=== PATIENT | female | born 1970 | race Caucasian/White ===

== ENCOUNTER 2017-05-17 01:03 | Inpatient (IN) | payer MEDICAID, OTHER ==
[~2017-05-17] VITALS: Ht 167.6 cm; Wt 86.7 kg
[2017-05-17] VITALS (8 sets, daily range): BP systolic 124–187; BP diastolic 75–112; PULSE 72–100; RESP 14–18; TEMP 96.5–98.4; O2SAT 94–98
[2017-05-17] MEDS ORDERED: PANTOPRAZOLE SODIUM 40 MG VIAL IVP ONE (01:30)
[2017-05-17] MEDS ORDERED: SODIUM CHLORIDE 0.9% FLUSH 10 ML FLUSH IV FLUSH PRN ×2 (01:30→03:30)
--- NOTE | 2017-05-17 01:58 | PD ---
HPI Chief Complaint: Abdominal Pain Time Seen by Provider: :17 Travel History International Travel<30 days: No Contact w/Intl Traveler<30days: No Traveled to known affect area: No History of Present Illness HPI Patient is a 44-year-old female who presents emergency department with abdominal pain. For the last 2 weeks intermittently she has had pain in the back, describes this as in between the shoulder blades/flank. Pain occasionally will radiate into the abdomen and periumbilical and epigastric region. Patient has noticed that the pain in the abdomen seemed to be worse after eating a hamburger and pizza, approximately 60 minutes after ingestion. She denies any history of hepatobiliary pathology, but did note that gallbladder disease runs in her family. Patient denies any nausea, vomiting, fevers or chills. No urinary symptoms. PFSH Past Medical History Medical History: Denies Significant Hx Influenza Vaccination: No ?: Not LMP: MAY 2017 : 2 Para: 2 Past Surgical History Surgical History: No Previous Surgery Social History Alcohol Use: Yes (SOCIAL) Tobacco Use: No Substance Use: No Allergies-Medications (Allergen,Severity, Reaction): Coded Allergies: Penicillin (Verified Allergy, Severe, Anaphylaxis, 05/17/17) Sulfa (Verified Allergy, Severe, Hives, 05/17/17) Reported Meds & Prescriptions Reported Meds & Active Scripts Active Ciprofloxacin (Ciprofloxacin HCl) 750 Mg Tab 750 Mg PO BID 7 Days Review of Systems Except as stated in HPI: all other systems reviewed are Neg Physical Exam Narrative GENERAL: Well-appearing female in no acute distress SKIN: Focused skin assessment warm/dry. HEAD: Normocephalic. EYES: No scleral icterus. No injection or drainage. ENT: Mucous membranes pink and moist. NECK: Supple CARDIOVASCULAR: Regular rate and rhythm. RESPIRATORY: No accessory muscle use. GASTROINTESTINAL: Abdomen soft, right upper quadrant and epigastric tenderness palpation without rebound or guarding MUSCULOSKELETAL: No obvious deformities. No edema. NEUROLOGICAL: Awake and alert. Motor grossly within normal limits. Normal speech. PSYCHIATRIC: Appropriate mood and affect; insight and judgment normal. Data Data Last Documented VS Vital Signs Date Time Temp Pulse Resp B/P Pulse Ox O2 Delivery O2 Flow Rate FiO2 05/17/17 01:06 97.8 100 14 187/112 96 Room Air Orders Complete Blood Count With Diff (05/17/17 01:23) Comprehensive Metabolic Panel (05/17/17 01:23) Lipase (05/17/17 01:23) Urinalysis - C+S If Indicated (05/17/17 01:23) Us Abdomen Gallbladder (05/17/17 ) Iv Access Insert/Monitor (05/17/17 01:23) Ecg Monitoring (05/17/17 01:23) Oximetry (05/17/17 01:23) Pantoprazole Inj (Protonix Inj) (05/17/17 01:30) Sodium Chloride 0.9% Flush (Ns Flush) (05/17/17 01:30) Ed Urine Pregnancytest Poc (05/17/17 01:23) Urine Culture (05/17/17 01:51) Ciprofloxacin (Cipro) (05/17/17 02:30) Potassium Chloride (Kcl) (05/17/17 02:45) Consult Gastroenterology (05/17/17 ) Mri Mrcp W/O Contrast (05/17/17 ) Morphine Inj (Morphine Inj) (05/17/17 03:15) NPO (05/17/17 03:04) Labs Laboratory Tests Test 05/17/17 05/17/17 01:35 01:51 White Blood Count 9.4 TH/MM3 Red Blood Count 4.98 MIL/MM3 Hemoglobin 14.7 GM/DL Hematocrit 42.8 % Mean Corpuscular Volume 85.9 FL Mean Corpuscular Hemoglobin 29.5 PG Mean Corpuscular Hemoglobin 34.3 % Concent Red Cell Distribution Width 12.7 % Platelet Count 167 TH/MM3 Mean Platelet Volume 9.6 FL Neutrophils (%) (Auto) 81.8 % Lymphocytes (%) (Auto) 9.1 % Monocytes (%) (Auto) 7.3 % Eosinophils (%) (Auto) 1.5 % Basophils (%) (Auto) 0.3 % Neutrophils # (Auto) 7.7 TH/MM3 Lymphocytes # (Auto) 0.9 TH/MM3 Monocytes # (Auto) 0.7 TH/MM3 Eosinophils # (Auto) 0.1 TH/MM3 Basophils # (Auto) 0.0 TH/MM3 CBC Comment DIFF FINAL Differential Comment Sodium Level 138 MEQ/L Potassium Level 3.0 MEQ/L Chloride Level 101 MEQ/L Carbon Dioxide Level 27.6 MEQ/L Anion Gap 9 MEQ/L Blood Urea Nitrogen 6 MG/DL Creatinine 0.91 MG/DL Random Glucose 125 MG/DL Calcium Level 8.7 MG/DL Total Bilirubin 8.0 MG/DL Aspartate Amino Transf 328 U/L (AST/SGOT) Alanine Aminotransferase 313 U/L (ALT/SGPT) Alkaline Phosphatase 196 U/L Total Protein 7.2 GM/DL Albumin 3.5 GM/DL Lipase 94428 U/L Urine Color DARK-BROWN Urine Turbidity HAZY Urine pH 5.0 Urine Specific [place] 1.018 Urine Protein TRACE mg/dL Urine Glucose (UA) NEG mg/dL Urine Ketones 10 mg/dL Urine Occult Blood TRACE Urine Nitrite POS Urine Bilirubin LARGE Urine Urobilinogen 2.0 MG/DL Urine Leukocyte Esterase MOD Urine RBC 2 /hpf Urine WBC 6 /hpf Urine Squamous Epithelial 2 /hpf Cells Urine Bacteria MANY /hpf Urine Mucus FEW /lpf Microscopic Urinalysis Comment CULTURE INDICATED MDM Medical Decision Making Medical Screen Exam Complete: Yes Emergency Medical Condition: Yes Medical Record Reviewed: Yes Differential Diagnosis 46-year-old female with bilateral flank pain radiating to the epigastric and periumbilical region. Worse after fatty food intake. Differential includes pyelonephritis, ureterolithiasis, musculoskeletal pain, gastritis, pancreatitis , hepatobiliary pathology. Narrative Course Patient placed on monitor, IV established and blood obtained. Given IV PPI. CBC, CMP, lipase, urinalysis and urine test notable for positive nitrites with leukocyte esterase, white cells and bacteria. Patient was given dose of Cipro. Lipase 24, 284. Total bilirubin 8.0, AST 328, ALT 313, alkaline phosphatase 196. Consistent with likely gallstone pancreatitis. Potassium 3.0, replaced with 60 mEq orally. Ultrasound the gallbladder showed cholelithiasis with mild gallbladder wall thickening. Does have dilated common bile duct. Concern again for gallstone pancreatitis. Will obtain MRCP, patient given dose of Cipro Flagyl and will be admitted with GI and surgery consultations for possible ERCP and/or cholecystectomy. Diagnosis Primary Impression: Gallstone pancreatitis Additional Impressions: Cholecystitis UTI (urinary tract infection) Qualified Code: N30.00 - Acute cystitis without hematuria Hypokalemia Admitting Information Admitting Physician Requests: Admit Scripts Ciprofloxacin 750 Mg [id number] Mg PO BID 7 Days Ref 0 Prov:Noemí Medeiros MD 05/17/17 Noemí Medeiros MD May 17, 2017 01:58
[2017-05-17 02:05] LABS: AUTOMATED NEUTROPHIL # 7.7 TH/MM3 (1.8-7.7); BASOPHIL % 0.3 % (0.0-2.0); EOSINOPHIL # 0.1 TH/MM3 (0-0.4); EOSINOPHIL % 1.5 % (0.0-4.0); HEMATOCRIT 42.8 % (35.0-46.0); HEMO FLAGS DIFF FINAL; LYMPH % 9.1 % (9.0-44.0); LYMPHOCYTE # 0.9 TH/MM3 (1.0-4.8); MEAN CELL VOLUME 85.9 FL (80.0-100.0); MEAN CORPUSCULAR HEMOGLOBIN 29.5 PG (27.0-34.0); MEAN CORPUSCULAR HGB CONC 34.3 % (32.0-36.0); MONO % 7.3 % (0.0-8.0); NEUT % 81.8 % (16.0-70.0); PLATELET COUNT 167 TH/MM3 (150-450); RED BLOOD COUNT 4.98 MIL/MM3 (4.00-5.30); RED CELL DISTRIBUTION WIDTH 12.7 % (11.6-17.2); WHITE BLOOD COUNT 9.4 TH/MM3 (4.0-11.0)
[2017-05-17 02:20] LABS: BACTERIA, URINE MANY /hpf; BLOOD, URINE TRACE (NEG); COMMENT (UR) CULTURE INDICATED; CULTURE IF INDICATED CULTURE INDICATED; GLUCOSE,URINE NEG (NEG); KETONE, URINE 10 mg/dL (NEG); MUCUS URINE FEW /lpf (OCC); SQUAMOUS EPITHELIAL CELL URINE 2 /hpf (0-5)
[2017-05-17 02:21] LABS: NITRITE,URINE POS (NEG); URINE COLOR DARK-BROWN (YELLW/STRAW)
[2017-05-17] MEDS ORDERED: CIPR750T2 PO (02:27)
[2017-05-17 02:28] LABS: ALT (GPT) 313 U/L (10-53); ANION GAP 9 MEQ/L (5-15); AST (GOT) 328 U/L (15-37); BICARBONATE 27.6 MEQ/L (21.0-32.0); BLOOD UREA NITROGEN 6 MG/DL (7-18); CHLORIDE 101 MEQ/L (98-107); SODIUM (NA) 138 MEQ/L (136-145)
[2017-05-17 02:30] LABS: ALKALINE PHOSPHATASE 196 U/L (45-117)
[2017-05-17] MEDS ORDERED: CIPROFLOXACIN 750 MG TAB PO ONE (02:30)
[2017-05-17] MEDS ORDERED: POTASSIUM CHLORIDE 20 MEQ CONTROLLED RELEASE TAB PO ONE (02:45)
--- NOTE | 2017-05-17 02:55 | RADRPT ---
EXAM DATE/TIME: 05/17/2017 02:15 [facility] COMPARISON: No previous studies available for comparison. INDICATIONS : Righy upper quadrant pain. MEDICAL HISTORY : . Right upper quadrant pain. SURGICAL HISTORY : None. ENCOUNTER: Initial ACUITY: 2 weeks PAIN SCORE: 10/10 LOCATION: Right upper quadrant MEASUREMENTS: LIVER: 16.3 cm length COMMON DUCT: 7 mm RIGHT KIDNEY: 9.9 x 4.9 x 4.2 cm FINDINGS: Ultrasound of the upper abdomen demonstrates normal echogenicity of the liver. No intrahepatic or ext ra hepatic ductal dilatation is seen. There is hepatopedal flow through the portal vein. There are m ultiple stones within the gallbladder the largest measuring 3 mm with mild wall thickening to 4 mm. C holecystitis is not excluded. Radionuclide imaging is recommended for further evaluation if clinicall y indicated. The pancreas demonstrates no evidence of mass and there is no dilatation of the pancreat ic duct. CONCLUSION: 1. Cholelithiasis with mild gallbladder wall thickening. Cholecystitis is not excluded. Radionuclide imaging is recommended for further evaluation if clinically indicated. Ricky Bland MD on May 17, 2017 at 2:52 Board Certified Radiologist. This report was verified electronically.
[2017-05-17] MEDS ORDERED: ONDANSETRON HCL 4 MG/2 ML VIAL IV PUSH ONE (03:15)
[2017-05-17] MEDS ORDERED: metroNIDAZOLE 500 MG INJ 100 ML IV ONE (03:15)
[2017-05-17] MEDS ORDERED: MORPHINE SULFATE 4 MG/ML INJ IV PUSH ONE (03:15)
[2017-05-17] MEDS ORDERED: CIPROFLOXACIN 400 MG PREMIX 200 ML IV ONE (03:15)
[2017-05-17] MEDS: SODIUM CHLOR 0.9% 1000 ML INJ 1,000 ML IV SCH ×3 (03:19→23:18)
[2017-05-17] MEDS ORDERED: BISACODYL 10 MG SUPP RECTAL PRN (03:30)
[2017-05-17] MEDS ORDERED: SENNOSIDES 8.6 MG TAB PO PRN (03:30)
[2017-05-17] MEDS ORDERED: MAGNESIUM HYDROXIDE SUSP 30 ML CUP PO PRN (03:30)
[2017-05-17] MEDS ORDERED: LACTULOSE SYRUP 20 GM/30 ML CUP PO PRN (03:30)
[2017-05-17] MEDS ORDERED: MORPHINE SULFATE 4 MG/ML INJ IV PRN (03:30)
[2017-05-17] MEDS: MORPHINE SULFATE 4 MG/ML INJ IV PRN ×4 (05:06→21:01)
[2017-05-17] MEDS: ONDANSETRON HCL 4 MG/2 ML VIAL IVP PRN ×3 (05:08→17:51)
--- NOTE | 2017-05-17 05:18 | HHI.HP ---
[facility] No Primary Care Physician Admission Diagnosis gallstone pancreatitis, UTI, cholecystitis Diagnoses: (1) Gallstone pancreatitis Diagnosis: Principal (2) Cholecystitis Diagnosis: Principal (3) Elevated LFTs Diagnosis: Principal (4) UTI (urinary tract infection) Diagnosis: Principal (5) Hypokalemia Diagnosis: Principal Travel History International Travel<30 Days: No Contact w/Intl Traveler <30 Da: No Traveled to Known Affected Are: No History of Present Illness This is a 46-year-old female with no significant PMH who presents the ER with complain severe abdominal pain x2 wks. Reports pain has been intermittent, worse with food, and occasional radiation to back. Denies fever, chills, nausea or vomiting. No h/o similar symptoms in the past. On arrival, BP 187/ 112, HR 100, O2 sat 96% on RA, Afebrile. CBC unremarkable. K+ 3.0. LFTs elevated. Total Bili 8. Lipase 24,284. UA positive for UTI. Gallbladder US with cholelithiasis and mild gallbladder wall thickening, cholecystitis not excluded. MRCP ordered in the ER, currently pending. GI and General SURGERY consulted by ER physician, will evaluate in a.m. S/p Cipro/Flagyl. Review of Systems Except as stated in HPI: all other systems reviewed are Neg ROS: 14 point review of systems otherwise negative. Past Family Social History Past Medical History PMH: None Past Surgical History PAST SURGICAL HISTORY: None Allergies: Coded Allergies: Penicillin (Verified Allergy, Severe, Anaphylaxis, 05/17/17) Sulfa (Verified Allergy, Severe, Hives, 05/17/17) Family History PAST FAMILY HISTORY: Reviewed. No h/o DM or CAD Social History PAST SOCIAL HISTORY: Occasional alcohol. Negative for tobacco or drugs. Physical Exam Vital Signs Vital Signs Date Time Temp Pulse Resp B/P Pulse Ox O2 Delivery O2 Flow Rate FiO2 05/17/17 03:27 92 16 132/84 96 Room Air 05/17/17 01:06 97.8 100 14 187/112 96 Room Air Physical Exam PE: GENERAL: Middle-aged white female in no acute distress. HEENT: PERRLA, EOMI. No scleral icterus or conjunctival pallor. No lid lag or facial droop. CARDIOVASCULAR: Regular rate and rhythm. No obvious murmurs to auscultation. No chest tenderness to palpation. RESPIRATORY: No obvious rhonchi or wheezing. Clear to auscultation. Breath sounds equal bilaterally. GASTROINTESTINAL: Abdomen soft, epigastric and RUQ tenderness to palpation, nondistended. BS normal. MUSCULOSKELETAL: Extremities without clubbing, cyanosis, or edema. No obvious deformities. NEUROLOGICAL: Awake, alert and oriented x4. No focal neurologic deficits. Moving both upper and lower extremities spontaneously. Laboratory Laboratory Tests Test 05/17/17 05/17/17 01:35 01:51 White Blood Count 9.4 Red Blood Count 4.98 Hemoglobin 14.7 Hematocrit 42.8 Mean Corpuscular Volume 85.9 Mean Corpuscular Hemoglobin 29.5 Mean Corpuscular Hemoglobin 34.3 Concent Red Cell Distribution Width 12.7 Platelet Count 167 Mean Platelet Volume 9.6 Neutrophils (%) (Auto) 81.8 Lymphocytes (%) (Auto) 9.1 Monocytes (%) (Auto) 7.3 Eosinophils (%) (Auto) 1.5 Basophils (%) (Auto) 0.3 Neutrophils # (Auto) 7.7 Lymphocytes # (Auto) 0.9 Monocytes # (Auto) 0.7 Eosinophils # (Auto) 0.1 Basophils # (Auto) 0.0 CBC Comment DIFF FINAL Differential Comment Sodium Level 138 Potassium Level 3.0 Chloride Level 101 Carbon Dioxide Level 27.6 Anion Gap 9 Blood Urea Nitrogen 6 Creatinine 0.91 Random Glucose 125 Calcium Level 8.7 Total Bilirubin 8.0 Aspartate Amino Transf 328 (AST/SGOT) Alanine Aminotransferase 313 (ALT/SGPT) Alkaline Phosphatase 196 Total Protein 7.2 Albumin 3.5 Lipase 01540 Urine Color DARK-BROWN Urine Turbidity HAZY Urine pH 5.0 Urine Specific [place] 1.018 Urine Protein TRACE Urine Glucose (UA) NEG Urine Ketones 10 Urine Occult Blood TRACE Urine Nitrite POS Urine Bilirubin LARGE Urine Urobilinogen 2.0 Urine Leukocyte Esterase MOD Urine RBC 2 Urine WBC 6 Urine Squamous Epithelial 2 Cells Urine Bacteria MANY Urine Mucus FEW Microscopic Urinalysis Comment CULTURE INDICATED Date/Time Procedure Status Source Growth 05/17/17 01:51 Urine Culture Received Urine Clean Catch Pending Result Diagram: 05/17/1713405/17/17134 Assessment and Plan Problem List: (1) Gallstone pancreatitis ICD Code: K85.10 Status: Acute (2) Cholecystitis ICD Code: K81.9 Status: Acute (3) Elevated LFTs ICD Code: R79.89 Status: Acute (4) UTI (urinary tract infection) ICD Code: N39.0 Status: Acute (5) Hypokalemia ICD Code: E87.6 Status: Acute Assessment and Plan A/P: 1. Pancreatitis: Gallstone Pancreatitis. Lipase 24, 284. Gallbladder US w/ cholelithiasis, mild gallbladder wall thickening, images reviewed by me. Total Bili 8.0 in addition to elevated LFTs. MRCP ordered in ER, currently pending. GI/Gen Sx consulted by ER physician, pending eval in am. S/p Cipro/Flagyl in ER. Clear Liquids, IVF, analgesics/antiemetics as needed. 2. Cholecystitis: Gallbladder US w/ possible cholecystitis, images reviewed by me, Gen Sx consulted as above, continue w/ IV Abx. 3. Elevated LFTs: secondary to above, no previous labs for comparison. Repeat labs in am. 4. UTI: U/a w/ UTI, continue w/ IV Abx, IVF for hydration. 5. Hypokalemia: K+ 3.0, s/p replacement, will recheck and replace as needed. 6. DVT Prophylaxis: SCD/Teds. 7. Social work for d/c planning as needed. 8. Case discussed w/ ER physician at length. Physician Certification 2 Midnight Certification Type: Admission for Inpatient Services Order for Inpatient Services The services are ordered in accordance with Medicare regulations or non- Medicare payer requirements, as applicable. In the case of services not specified as inpatient-only, they are appropriately provided as inpatient services in accordance with the 2-midnight benchmark. Estimated LOS (days): 2 days is the estimated time the patient will need to remain in the hospital, assuming treatment plan goals are met and no additional complications. Post-Hospital Plan: Not yet determined Problem Qualifiers (1) UTI (urinary tract infection): Qualified Code: N30.00 - Acute cystitis without hematuria Ligia Saucedo MD May 17, 2017 05:18
--- NOTE | 2017-05-17 05:23 | RADRPT ---
EXAM DATE/TIME: 05/17/2017 03:36 [facility] COMPARISON: US ABDOMEN - GALLBLADDER, May 17, 2017, 2:15. INDICATIONS : Pancreatitis. MEDICAL HISTORY : None. SURGICAL HISTORY : None. ENCOUNTER: Initial ACUITY: 2 months PAIN SCORE: 7/10 LOCATION: Bilateral upper quadrant TECHNIQUE: Multiplanar, multisequence magnetic resonance imaging of the abdomen was performed. High-resolution 3D dataset was utilized to reconstruct maximum-intensity projection (MIP) images. FINDINGS: The liver and spleen are normal in size and signal intensity without evidence of focal mass. There are multiple stones within the gallbladder without wall thickening or pericholecystic fluid the largest measuring 3 mm in dependent portion of the gallbladder. There is extensive inflammatory duffy ge involving the entire pancreas with peripancreatic fluid characteristic of acute pancreatitis. The adrenal glands and kidneys appear normal bilaterally. No hydronephrosis or mass lesions are identifie d. There is a small amount of fluid in the hepatorenal fossa. Examination of the biliary tree demonstrates no evidence of stone. The pancreatic duct is normal. CONCLUSION: 1. Findings of acute pancreatitis. 2. Cholelithiasis without common duct stone Ricky Bland MD on May 17, 2017 at 5:10 Board Certified Radiologist. This report was verified electronically.
[2017-05-17] MEDS: DOCUSATE SODIUM 50 MG/SENNA 8.6 MG TAB PO SCH ×2 (07:57→20:55)
[2017-05-17] MEDS: SODIUM CHLORIDE 0.9% FLUSH 10 ML FLUSH IV FLUSH SCH ×2 (07:59→20:55)
[2017-05-17 09:03] LABS: AUTOMATED NEUTROPHIL # 7.9 TH/MM3 (1.8-7.7); BASOPHIL % 0.2 % (0.0-2.0); EOSINOPHIL % 0.2 % (0.0-4.0); HEMATOCRIT 40.6 % (35.0-46.0); HEMO FLAGS DIFF FINAL; LYMPH % 6.2 % (9.0-44.0); LYMPHOCYTE # 0.6 TH/MM3 (1.0-4.8); MEAN CELL VOLUME 85.8 FL (80.0-100.0); MEAN CORPUSCULAR HEMOGLOBIN 29.8 PG (27.0-34.0); MEAN CORPUSCULAR HGB CONC 34.8 % (32.0-36.0); MONO % 5.5 % (0.0-8.0); NEUT % 87.9 % (16.0-70.0); PLATELET COUNT 166 TH/MM3 (150-450); RED BLOOD COUNT 4.73 MIL/MM3 (4.00-5.30); RED CELL DISTRIBUTION WIDTH 13.1 % (11.6-17.2)
--- NOTE | 2017-05-17 09:40 | PD.CONS ---
HPI History of Present Illness This is a 46 year old with out past medical hx presents to [facility] with severe epigastric pain. Symptoms started in March after eating a hamburger, She developed middle upper back pain that continued through the night, terrible severe labor like pain, she placed Biofreeze with some relief, this then subsided. Intermittently, she had other similar episodes but with different foods which thought was odd. On , she had a Pizza, 3 hours later, she developed same back pain that was followed by severe, stabbing epigastric pain and had fear of eating at that pointy, it also effected her ability to breath which was different and that prompted Hospital visit. Denies fever, chill , nausea, vomiting, melena or hematochezia. She reports dark urine. Work up here revealed lipase 24,284, [id number] [id number] TSF599 bili8 k 3.0. CBC unremarkable. Gallbladder US with cholelithiasis and mild gallbladder wall thickening, cholecystitis not excluded. MRCP with acute pancreatitis, cholelithiasis, no CBD stones, repeat labs pending. GS consulted. Was started on Cipro and Flagyl. She used to drink almost daily, but non recently and she was never a heavy drinker. no family hx of pancreatitis. (Jaydon Barker) PFSH Past Medical History PMH: None Past Surgical History PAST SURGICAL HISTORY: None (Jaydon Barker) Coded Allergies: Penicillin (Verified Allergy, Severe, Anaphylaxis, 05/17/17) Sulfa (Verified Allergy, Severe, Hives, 05/17/17) Medications Current Medications Medications (Trade) Dose Ordered Sig/Gayle Route Start Time Stop Time Status Last Admin Sodium Chloride 2 ml 2 ml UNSCH PRN IV FLUSH 05/17/17 01:30 Metronidazole 100 ml @ 100 mls/hr Q8H IV 05/17/17 11:00 (NS 1000 ml Inj) 1,000 ml @ 100 mls/hr Q10H IV 05/17/17 03:19 (NS Flush) 2 ml UNSCH PRN IV FLUSH 05/17/17 03:30 (NS Flush) 2 ml BID IV FLUSH 05/17/17 09:00 (Zofran Inj) 4 mg Q6H PRN IVP 05/17/17 03:30 05/17/17 05:08 (Tylenol) 650 mg Q6H PRN PO 05/17/17 03:30 (Morphine Inj) 1 mg Q3H PRN IV 05/17/17 03:30 (Morphine Inj) 2 mg Q3H PRN IV 05/17/17 03:30 05/17/17 08:24 (Lynne-Colace) 1 tab BID PO 05/17/17 09:00 05/17/17 07:57 (Milk Of Magnesia Liq) 30 ml Q12H PRN PO 05/17/17 03:30 (Senokot) 17.2 mg Q12H PRN PO 05/17/17 03:30 05/17/17 07:57 (Dulcolax Supp) 10 mg DAILY PRN RECTAL 05/17/17 03:30 Lactulose 30 ml 30 ml DAILY PRN PO 05/17/17 03:30 05/17/17 07:58 (Cipro 400 Mg Premix) 200 ml @ 200 mls/hr Q12H IV 05/17/17 16:00 Family History PAST FAMILY HISTORY: no family hx of pancreatitis almost every one in the family had gallbladder removed Social History PAST SOCIAL HISTORY: Occasional alcohol. Negative for tobacco or drugs. (Jaydon Barker) Review of Systems Constitutional: DENIES: Fever Endocrine: DENIES: Polyuria Eyes: DENIES: Double Vision Ears, nose, mouth, throat: DENIES: Hoarseness Respiratory: COMPLAINS OF: Shortness of breath Cardiovascular: DENIES: Lower Extremity Edema Gastrointestinal: COMPLAINS OF: Abdominal pain, Anorexia, DENIES: Black stools , Bloody stools, Constipation, Diarrhea, Nausea, Vomiting, Difficulty Swallowing , Odynophagia, Swelling of Abdomen, Heartburn, Hematemesis Genitourinary: DENIES: Hematuria Musculoskeletal: COMPLAINS OF: Back pain, DENIES: Neck pain Integumentary: DENIES: Jaundice Hematologic/lymphatic: DENIES: Bruising Immunologic/allergic: DENIES: Eczema Neurologic: DENIES: Abnormal gait Psychiatric: DENIES: Anxiety (Jaydon Barker) GI Exam Vitals I&O Vital Signs Date Time Temp Pulse Resp B/P Pulse Ox O2 Delivery O2 Flow Rate FiO2 05/17/17 04:00 96.8 92 17 142/84 94 05/17/17 03:27 92 16 132/84 96 Room Air 05/17/17 01:06 97.8 100 14 187/112 96 Room Air Imaging Last Impressions Gall Bladder Ultrasound 05/17/17 0000 Signed Impressions: Service Date/Time: Wednesday, May 17, 2017 02:15 - CONCLUSION: 1. Cholelithiasis with mild gallbladder wall thickening. Cholecystitis is not excluded. Radionuclide imaging is recommended for further evaluation if clinically indicated. Ricky Bland MD Cholangiopancreatography MRI 05/17/17 0000 Signed Impressions: Service Date/Time: Wednesday, May 17, 2017 03:36 - CONCLUSION: 1. Findings of acute pancreatitis. 2. Cholelithiasis without common duct stone Ricky Bland MD Laboratory Test 05/17/17 05/17/17 05/17/17 01:35 01:51 08:23 White Blood Count 9.4 TH/MM3 9.0 TH/MM3 Red Blood Count 4.98 MIL/MM3 4.73 MIL/MM3 Hemoglobin 14.7 GM/DL 14.1 GM/DL Hematocrit 42.8 % 40.6 % Mean Corpuscular Volume 85.9 FL 85.8 FL Mean Corpuscular Hemoglobin 29.5 PG 29.8 PG Mean Corpuscular Hemoglobin 34.3 % 34.8 % Concent Red Cell Distribution Width 12.7 % 13.1 % Platelet Count 167 TH/MM3 166 TH/MM3 Mean Platelet Volume 9.6 FL 10.4 FL Neutrophils (%) (Auto) 81.8 % 87.9 % Lymphocytes (%) (Auto) 9.1 % 6.2 % Monocytes (%) (Auto) 7.3 % 5.5 % Eosinophils (%) (Auto) 1.5 % 0.2 % Basophils (%) (Auto) 0.3 % 0.2 % Neutrophils # (Auto) 7.7 TH/MM3 7.9 TH/MM3 Lymphocytes # (Auto) 0.9 TH/MM3 0.6 TH/MM3 Monocytes # (Auto) 0.7 TH/MM3 0.5 TH/MM3 Eosinophils # (Auto) 0.1 TH/MM3 0.0 TH/MM3 Basophils # (Auto) 0.0 TH/MM3 0.0 TH/MM3 CBC Comment DIFF FINAL DIFF FINAL Differential Comment Sodium Level 138 MEQ/L Potassium Level 3.0 MEQ/L Chloride Level 101 MEQ/L Carbon Dioxide Level 27.6 MEQ/L Anion Gap 9 MEQ/L Blood Urea Nitrogen 6 MG/DL Creatinine 0.91 MG/DL Random Glucose 125 MG/DL Calcium Level 8.7 MG/DL Total Bilirubin 8.0 MG/DL Aspartate Amino Transf 328 U/L (AST/SGOT) Alanine Aminotransferase 313 U/L (ALT/SGPT) Alkaline Phosphatase 196 U/L Total Protein 7.2 GM/DL Albumin 3.5 GM/DL Lipase 15195 U/L Urine Color DARK-BROWN Urine Turbidity HAZY Urine pH 5.0 Urine Specific [place] 1.018 Urine Protein TRACE mg/dL Urine Glucose (UA) NEG mg/dL Urine Ketones 10 mg/dL Urine Occult Blood TRACE Urine Nitrite POS Urine Bilirubin LARGE Urine Urobilinogen 2.0 MG/DL Urine Leukocyte Esterase MOD Urine RBC 2 /hpf Urine WBC 6 /hpf Urine Squamous Epithelial 2 /hpf Cells Urine Bacteria MANY /hpf Urine Mucus FEW /lpf Microscopic Urinalysis Comment CULTURE INDICATED Date/Time Procedure Status Source Growth 05/17/17 01:51 Urine Culture Received Urine Clean Catch Pending Physical Examination HEENT: normocephalic; atraumatic; no jaundice. NECK: Neck is supple, no JVD, no lymphadenopathy. CHEST: Chest is clear to auscultation and percussion. CARDIAC: Regular rate and rhythm with no murmur gallop or rubs. ABDOMEN: Soft, nondistended, epigastric pain, no hepatosplenomegaly; bowel sounds are present in all four quadrants. EXTREMITIES: No clubbing, cyanosis, or edema. SKIN: Normal; no rash; no jaundice. LEARNING PROGRAM MANAGER: No focal deficits; alert and oriented times three. (Magdielawi,Jaydon [facility]) Assessment and Plan Plan - Gallstone Pancreatitis. Lipase 24, 284. Gallbladder US w/ cholelithiasis, mild gallbladder wall thickening. Total Bili 8.0 in addition to elevated LFTs. MRCP with acute pancreatitis, cholelithiasis, no CBD stones, labs today pending. GS consulted. Was started on Cipro and Flagyl. She used to drink almost daily, but non recently and she was never a heavy drinker. no family hx of pancreatitis. - Cholecystitis: Gallbladder US w/ possible cholecystitis. Gen consulted IV Abx. - Elevated LFTs: secondary to above. lipase 24,284, [id number] [id number] QJE536 bili8 k 3.0. repeat labs pending - UTI- IV Abx - Hypokalemia: K+ 3.0 replaced by attending Plan: - Clear liquids - Await GS consult - Aggressive hydration - Pain meds/ antiemetics - Cont. abx - LFTs, lipase in am - Supportive care - Patient seen and examined by Dr. Huang and myself and this note is written on her behalf. (Jaydon Barker) Physician Comments seen, examined agree with above at this time no indication for ERCP , if the need arises we will schedule ( Mohini Huang MD) Jaydon Barker May 17, 2017 09:40 Mohini Huang MD May 17, 2017 14:25
--- NOTE | 2017-05-17 10:51 | HHI.PR ---
Subjective Remarks in no acute distress. pain is fairly controlled. had some nausea earlier which is better now. no fever. Objective Vitals Vital Signs Date Time Temp Pulse Resp B/P Pulse Ox O2 Delivery O2 Flow Rate FiO2 05/17/17 08:00 96.5 95 16 137/89 96 05/17/17 04:00 96.8 92 17 142/84 94 05/17/17 03:27 92 16 132/84 96 Room Air 05/17/17 01:06 97.8 100 14 187/112 96 Room Air Result Diagram: 05/17/17 0823 05/17/17 0135 Imaging Last Impressions Gall Bladder Ultrasound 05/17/17 0000 Signed Impressions: Service Date/Time: Wednesday, May 17, 2017 02:15 - CONCLUSION: 1. Cholelithiasis with mild gallbladder wall thickening. Cholecystitis is not excluded. Radionuclide imaging is recommended for further evaluation if clinically indicated. Ricky Bland MD Cholangiopancreatography MRI 05/17/17 0000 Signed Impressions: Service Date/Time: Wednesday, May 17, 2017 03:36 - CONCLUSION: 1. Findings of acute pancreatitis. 2. Cholelithiasis without common duct stone Ricky Bland MD Objective Remarks GENERAL: This is a well-nourished, well-developed patient, in no apparent distress. CARDIOVASCULAR: Regular rate and regular rhythm without murmurs, gallops, or rubs. RESPIRATORY: Clear to auscultation. Breath sounds equal bilaterally. No wheezes , rales, or rhonchi. GASTROINTESTINAL: Abdomen soft, mild periumbilical tenderness, nondistended. Normal, active bowel sounds MUSCULOSKELETAL: Extremities without clubbing, cyanosis, or edema. NEURO: Alert & Oriented x4 to person, place, time, situation. Moves all ext x4 Medications and IVs Current Medications Pantoprazole Sodium (Protonix Inj) 40 mg ONCE ONCE IVP Last administered on 01:36; Start 05/17/17 at 01:30; Stop 05/17/17 at 01:31; Status DC Sodium Chloride (NS Flush) 2 ml UNSCH PRN IV FLUSH FLUSH AFTER USING IV ACCESS ; Start 05/17/17 at 01:30 Ciprofloxacin (Cipro) 750 mg ONCE ONCE PO Last administered on 05/17/17 02:46 ; Start 05/17/17 at 02:30; Stop 05/17/17 at 02:31; Status DC Potassium Chloride (KCl) 60 meq ONCE ONCE PO Last administered on 05/17/17 02: 47; Start 05/17/17 at 02:45; Stop 05/17/17 at 02:46; Status DC Morphine Sulfate 4 mg 4 mg ONCE ONCE IV PUSH Last administered on 05/17/17 03: 14; Start 05/17/17 at 03:15; Stop 05/17/17 at 03:16; Status DC Ciprofloxacin/ Dextrose 200 ml @ 200 mls/hr ONCE ONCE IV ; Start 05/17/17 at 03 :15; Stop 05/17/17 at 04:14; Status DC Metronidazole (Flagyl 500 Mg Inj) 100 ml @ 100 mls/hr ONCE ONCE IV Last administered on 05/17/17 03:19; Start 05/17/17 at 03:15; Stop 05/17/17 at 04:14; Status DC Ondansetron HCl 4 mg 4 mg ONCE ONCE IV PUSH ; Start 05/17/17 at 03:15; Stop 05/17 at 03:16; Status DC Ciprofloxacin/ Dextrose 200 ml @ 200 mls/hr Q12H IV ; Start 05/17/17 at 15:00; Stop 05/17/17 at 15:00; Status DC Metronidazole 100 ml @ 100 mls/hr Q8H IV ; Start 05/17/17 at 11:00 Sodium Chloride (NS 1000 ml Inj) 1,000 ml @ 100 mls/hr Q10H IV ; Start 05/17/17 at 03:19 Sodium Chloride (NS Flush) 2 ml UNSCH PRN IV FLUSH FLUSH AFTER USING IV ACCESS ; Start 05/17/17 at 03:30 Sodium Chloride (NS Flush) 2 ml BID IV FLUSH ; Start 05/17/17 at 09:00 Ondansetron HCl (Zofran Inj) 4 mg Q6H PRN IVP NAUSEA OR VOMITING Last administered on 05/17/17 05:08; Start 05/17/17 at 03:30 Acetaminophen (Tylenol) 650 mg Q6H PRN PO FEVER/PAIN SCALE 1 TO 2; Start at 03:30 Morphine Sulfate (Morphine Inj) 1 mg Q3H PRN IV Pain 3-5; Start 05/17/17 at 03: 30 Morphine Sulfate (Morphine Inj) 2 mg Q3H PRN IV Pain 6-10 Last administered on 05/17/17 08:24; Start 05/17/17 at 03:30 Senna/Docusate Sodium (Lynne-Colace) 1 tab BID PO Last administered on 05/17/17 07:57; Start 05/17/17 at 09:00 Magnesium Hydroxide (Milk Of Magnesia Liq) 30 ml Q12H PRN PO MILD - MODERATE CONSTIPATION; Start 05/17/17 at 03:30 Sennosides (Senokot) 17.2 mg Q12H PRN PO MODERATE - SEVERE CONSTIPATION Last administered on 05/17/17 07:57; Start 05/17/17 at 03:30 Bisacodyl (Dulcolax Supp) 10 mg DAILY PRN RECTAL SEVERE CONSITIPATION; Start at 03:30 Lactulose 30 ml 30 ml DAILY PRN PO SEVERE CONSITIPATION Last administered on 07:58; Start 05/17/17 at 03:30 Ciprofloxacin/ Dextrose (Cipro 400 Mg Premix) 200 ml @ 200 mls/hr Q12H IV ; Start 05/17/17 at 16:00 A/P Assessment and Plan A/P 1. Pancreatitis: Gallstone Pancreatitis. on liquid diet- continue pain control- GI and general surgery consulted. 2. Cholecystitis: Gallbladder US w/ possible cholecystitis.Gen Sx consulted as above, continue w/ IV Abx. 3. Elevated LFTs: secondary to above, no previous labs for comparison. will monitor. 4. UTI: U/a w/ UTI, continue w/ IV Abx, IVF for hydration. 5. Hypokalemia: will recheck and replace as needed. 6. DVT Prophylaxis: SCD/Teds. Ana Gruber MD May 17, 2017 10:51
[2017-05-17 10:56] LABS: INDIRECT BILIRUBIN 1.4 MG/DL (0.0-0.8); TOTAL BILIRUBIN ADULT 6.2 MG/DL (0.2-1.0)
[2017-05-17] MEDS: metroNIDAZOLE 500 MG INJ 100 ML IV SCH ×2 (11:53→17:50)
--- NOTE | 2017-05-17 14:25 | MB ---
cc: MORGAN RUIZ MD DATE OF CONSULTATION 05/17/2017 REASON FOR CONSULTATION Gallstone pancreatitis. HISTORY OF PRESENT ILLNESS The patient is a 46-year-old female who presented with presentation of severe right upper quadrant epigastric pain. She states the pain started and she put some ice packs. This pain started after eating pizza. She has some improvement but had recurrence of the pain, severe stabbing pain, sharp. It was initially 10/10, currently it is a 5/10 after morphine. She denied any associated fevers or chills or nausea, vomiting. She did have further workup after coming to the emergency department including lab values with markedly elevated lipase at 24,000, AST, ALT 328 and 313 respectively. Alkaline phosphatase 196 and a bilirubin of 8. She had further workup with gallbladder ultrasound showing multiple gallstones without choledocholithiasis. MRCP also confirmed stones, 7 mm common bile duct stones. Both gastroenterology and surgery were consulted for further evaluation. On my exam the patient is resting a little more comfortably. She states the pain is somewhat severe and she is tolerating some clear liquids. She did have a previous incident in March with several episodes of mild epigastric and right-sided pain that resolved with "BioFreeze cool pack." However, this pain is a little different and much more severe prompting her to come to the emergency department. PAST MEDICAL HISTORY The patient has no past medical history. PAST SURGICAL HISTORY The patient has no surgeries. ALLERGIES PENICILLIN, SULFA. MEDICATIONS See EMR. FAMILY HISTORY Previous history of gallbladder issues. No history of cancer or pancreatitis. SOCIAL HISTORY Denies smoking, EtOH or IVDA. REVIEW OF SYSTEMS GENERAL: Denies fever, chills. HEENT: Denies eye pain, ear pain or scleral icterus. RESPIRATORY: Denies cough or wheeze. CARDIAC: Denies palpitations or chest pain. GI: Complains of abdominal pain. Denies nausea, vomiting. : Denies dysuria, hematuria. MUSCULOSKELETAL: Denies arthralgia, myalgias. INTEGUMENT: Denies jaundice or skin lesions. PSYCH: Psych denies anxiety or change in mood. NEUROLOGIC: Denies numbness or tingling. ENDOCRINE: Denies polyuria, polydipsia. PHYSICAL EXAMINATION GENERAL: The patient no acute distress. VITAL SIGNS: Temperature 97.8, pulse 100, respiration 14, blood pressure 132/84, saturation 96% on room air. HEENT: PERRLA, pupils equally round, reactive. No scleral icterus. NECK: Supple. Trachea midline. LUNGS: Clear to auscultation bilateral expansion. HEART: S1-S2 regular rhythm. ABDOMEN: Soft, positive tenderness to palpation epigastric area. Positive right-sided tenderness. No rebound or guarding. EXTREMITIES: Warm, well-perfused. NEUROLOGIC: AO x 4. 5/55 motor all extremities. BACK: No step-offs. Normal curve. PSYCH: Good insight good judgment. LABORATORY AND DIAGNOSTIC DATA WBC 9.4, hemoglobin 14.7, hematocrit 42.8, platelets 167, sodium 138, potassium 3, chloride 101, BUN 6, creatinine 0.9, T bili 8, AST 328, ALT 313, alkaline phos 196, lipase 24,000. IMAGING STUDIES Reviewed by myself. Gallbladder ultrasound showing multiple gallstones without gallbladder wall thickening. No common bile duct stones. MRCP showing multiple stones as well with a 7 mm common bile duct. confirmed common bile duct stones. ASSESSMENT The patient is a 46-year-old female, healthy, presents with gallstone pancreatitis. PLAN After full clinical, radiologic, laboratory workup the patient above-named issues including pancreatitis, likely due to gallstones. The patient likely passed her stone. Therefore, currently we will wait for a full recommendation for gastroenterology. Will continue to observe and monitor the patient. We will wait till labs continue to trend down and improve and recheck these and continue serial abdominal exams and further assessment. Once labs have close to normalize will discuss possible laparoscopic cholecystectomy with possible intraoperative cholangiogram. If the labs continue to increase or do increase consider repeat imaging versus possible ERCP. This was discussed in detail with the patient. The patient understands and would like to proceed. The patient is okay for a clear liquid diet, however, if develops nausea or increased pain would consider making the patient n.p.o. with bowel rest. Continue IV fluids again and pain control. MD AMANDA Brown/ELSIE /11:20 AM /2:08 PM SLIM
[2017-05-17] MEDS ORDERED: CIPROFLOXACIN 400 MG PREMIX 200 ML IV SCH (15:00)
[2017-05-17] MEDS: CIPROFLOXACIN 400 MG PREMIX 200 ML IV SCH (16:49)
[2017-05-18] MEDS: MORPHINE SULFATE 4 MG/ML INJ IV PRN ×6 (00:05→21:03)
[2017-05-18] MEDS: metroNIDAZOLE 500 MG INJ 100 ML IV SCH ×3 (03:13→18:01)
[2017-05-18] MEDS: CIPROFLOXACIN 400 MG PREMIX 200 ML IV SCH ×2 (03:13→15:47)
[2017-05-18 03:51] VITALS: BP 114/67; PULSE 82; RESP 18; TEMP 96.6; O2SAT 96
[2017-05-18 07:43] VITALS: BP 117/75; PULSE 90; RESP 18; TEMP 97.9; O2SAT 95
[2017-05-18 08:28] LABS: AUTOMATED NEUTROPHIL # 6.8 TH/MM3 (1.8-7.7); BASOPHIL % 0.2 % (0.0-2.0); EOSINOPHIL # 0.2 TH/MM3 (0-0.4); EOSINOPHIL % 1.9 % (0.0-4.0); HEMATOCRIT 36.8 % (35.0-46.0); HEMO FLAGS DIFF FINAL; LYMPH % 10.2 % (9.0-44.0); LYMPHOCYTE # 0.9 TH/MM3 (1.0-4.8); MEAN CELL VOLUME 87.2 FL (80.0-100.0); MEAN CORPUSCULAR HEMOGLOBIN 29.5 PG (27.0-34.0); MEAN CORPUSCULAR HGB CONC 33.9 % (32.0-36.0); MONO % 7.5 % (0.0-8.0); NEUT % 80.2 % (16.0-70.0); PLATELET COUNT 147 TH/MM3 (150-450); RED BLOOD COUNT 4.22 MIL/MM3 (4.00-5.30); RED CELL DISTRIBUTION WIDTH 13.2 % (11.6-17.2); WHITE BLOOD COUNT 8.4 TH/MM3 (4.0-11.0)
[2017-05-18] MEDS: SODIUM CHLORIDE 0.9% FLUSH 10 ML FLUSH IV FLUSH SCH ×2 (08:47→20:40)
[2017-05-18] MEDS: DOCUSATE SODIUM 50 MG/SENNA 8.6 MG TAB PO SCH ×2 (08:47→20:40)
[2017-05-18] MEDS: ACETAMINOPHEN 325 MG TAB PO PRN ×2 (08:48→15:48)
[2017-05-18] MEDS: ONDANSETRON HCL 4 MG/2 ML VIAL IVP PRN ×2 (08:53→15:47)
[2017-05-18] MEDS: SODIUM CHLOR 0.9% 1000 ML INJ 1,000 ML IV SCH ×2 (08:54→18:01)
[2017-05-18 09:03] LABS: ALKALINE PHOSPHATASE 146 U/L (45-117); ALT (GPT) 167 U/L (10-53); ANION GAP 5 MEQ/L (5-15); AST (GOT) 80 U/L (15-37); BICARBONATE 27.1 MEQ/L (21.0-32.0); BLOOD UREA NITROGEN 2 MG/DL (7-18); CHLORIDE 104 MEQ/L (98-107); GLOMERULAR FILTRATION RATE 104 ML/MIN (>89); POTASSIUM 3.6 MEQ/L (3.5-5.1); SODIUM (NA) 136 MEQ/L (136-145); TOTAL BILIRUBIN ADULT 1.3 MG/DL (0.2-1.0)
--- NOTE | 2017-05-18 10:41 | HHI.PR ---
Subjective Remarks in no acute distress. pain is fairly controlled. no fever. Objective Vitals Vital Signs Date Time Temp Pulse Resp B/P Pulse Ox O2 Delivery O2 Flow Rate FiO2 05/18/17 07:43 97.9 90 18 117/75 95 05/18/17 03:51 96.6 82 18 114/67 96 05/17/17 23:41 96.7 85 18 130/79 96 05/17/17 19:48 97.4 72 18 126/75 98 05/17/17 16:50 98.4 84 16 124/81 96 05/17/17 11:58 96.7 87 16 139/93 96 I/O 05/17/17 05/17/17 05/17/17 05/18/17 05/18/17 05/18/17 06:59 14:59 22:59 06:59 14:59 22:59 Intake Total 1416 ml 1710 ml 1265 ml Balance 1416 ml 1710 ml 1265 ml Intake Oral 720 ml 480 ml 480 ml IV Total 696 ml 1230 ml 785 ml # Voids 2 2 2 # Bowel Movements 0 3 0 Result Diagram: 05/18/17 0726 05/18/17 0726 Imaging Last Impressions Gall Bladder Ultrasound 05/17/17 0000 Signed Impressions: Service Date/Time: Wednesday, May 17, 2017 02:15 - CONCLUSION: 1. Cholelithiasis with mild gallbladder wall thickening. Cholecystitis is not excluded. Radionuclide imaging is recommended for further evaluation if clinically indicated. Ricky Bland MD Cholangiopancreatography MRI 05/17/17 0000 Signed Impressions: Service Date/Time: Wednesday, May 17, 2017 03:36 - CONCLUSION: 1. Findings of acute pancreatitis. 2. Cholelithiasis without common duct stone Ricky Bland MD Objective Remarks GENERAL: This is a well-nourished, well-developed patient, in no apparent distress. CARDIOVASCULAR: Regular rate and regular rhythm without murmurs, gallops, or rubs. RESPIRATORY: Clear to auscultation. Breath sounds equal bilaterally. No wheezes , rales, or rhonchi. GASTROINTESTINAL: Abdomen soft, mild periumbilical tenderness, nondistended. Normal, active bowel sounds MUSCULOSKELETAL: Extremities without clubbing, cyanosis, or edema. NEURO: Alert & Oriented x4 to person, place, time, situation. Moves all ext x4 Medications and IVs Current Medications Pantoprazole Sodium (Protonix Inj) 40 mg ONCE ONCE IVP Last administered on 01:36; Start 05/17/17 at 01:30; Stop 05/17/17 at 01:31; Status DC Sodium Chloride (NS Flush) 2 ml UNSCH PRN IV FLUSH FLUSH AFTER USING IV ACCESS ; Start 05/17/17 at 01:30 Ciprofloxacin (Cipro) 750 mg ONCE ONCE PO Last administered on 05/17/17 02:46 ; Start 05/17/17 at 02:30; Stop 05/17/17 at 02:31; Status DC Potassium Chloride (KCl) 60 meq ONCE ONCE PO Last administered on 05/17/17 02: 47; Start 05/17/17 at 02:45; Stop 05/17/17 at 02:46; Status DC Morphine Sulfate 4 mg 4 mg ONCE ONCE IV PUSH Last administered on 05/17/17 03: 14; Start 05/17/17 at 03:15; Stop 05/17/17 at 03:16; Status DC Ciprofloxacin/ Dextrose 200 ml @ 200 mls/hr ONCE ONCE IV ; Start 05/17/17 at 03 :15; Stop 05/17/17 at 04:14; Status DC Metronidazole (Flagyl 500 Mg Inj) 100 ml @ 100 mls/hr ONCE ONCE IV Last administered on 05/17/17 03:19; Start 05/17/17 at 03:15; Stop 05/17/17 at 04:14; Status DC Ondansetron HCl 4 mg 4 mg ONCE ONCE IV PUSH ; Start 05/17/17 at 03:15; Stop 05/17 at 03:16; Status DC Ciprofloxacin/ Dextrose 200 ml @ 200 mls/hr Q12H IV ; Start 05/17/17 at 15:00; Stop 05/17/17 at 15:00; Status DC Metronidazole 100 ml @ 100 mls/hr Q8H IV Last administered on 05/18/17 03:13; Start 05/17/17 at 11:00 Sodium Chloride (NS 1000 ml Inj) 1,000 ml @ 100 mls/hr Q10H IV Last administered on 05/18/17 08:54; Start 05/17/17 at 03:19 Sodium Chloride (NS Flush) 2 ml UNSCH PRN IV FLUSH FLUSH AFTER USING IV ACCESS ; Start 05/17/17 at 03:30 Sodium Chloride (NS Flush) 2 ml BID IV FLUSH ; Start 05/17/17 at 09:00 Ondansetron HCl (Zofran Inj) 4 mg Q6H PRN IVP NAUSEA OR VOMITING Last administered on 05/18/17 08:53; Start 05/17/17 at 03:30 Acetaminophen (Tylenol) 650 mg Q6H PRN PO FEVER/PAIN SCALE 1 TO 2 Last administered on 05/18/17 08:48; Start 05/17/17 at 03:30 Morphine Sulfate (Morphine Inj) 1 mg Q3H PRN IV Pain 3-5; Start 05/17/17 at 03: 30 Morphine Sulfate (Morphine Inj) 2 mg Q3H PRN IV Pain 6-10 Last administered on 05/18/17 08:53; Start 05/17/17 at 03:30 Senna/Docusate Sodium (Lynne-Colace) 1 tab BID PO Last administered on 05/17/17 07:57; Start 05/17/17 at 09:00 Magnesium Hydroxide (Milk Of Magnesia Liq) 30 ml Q12H PRN PO MILD - MODERATE CONSTIPATION; Start 05/17/17 at 03:30 Sennosides (Senokot) 17.2 mg Q12H PRN PO MODERATE - SEVERE CONSTIPATION Last administered on 05/17/17 07:57; Start 05/17/17 at 03:30 Bisacodyl (Dulcolax Supp) 10 mg DAILY PRN RECTAL SEVERE CONSITIPATION; Start at 03:30 Lactulose 30 ml 30 ml DAILY PRN PO SEVERE CONSITIPATION Last administered on 07:58; Start 05/17/17 at 03:30 Ciprofloxacin/ Dextrose (Cipro 400 Mg Premix) 200 ml @ 200 mls/hr Q12H IV Last administered on 05/18/17 03:13; Start 05/17/17 at 16:00 A/P Assessment and Plan A/P 1. Pancreatitis: Gallstone Pancreatitis. MRCP with cholelithiasis without common duct stone. on liquid diet- continue pain control- GI and general surgery following- will monitor lipase. 2. Cholecystitis: Gallbladder US w/ possible cholecystitis.Gen Sx consulted as above, continue w/ IV Abx. 3. Elevated LFTs: secondary to above-improving.. will monitor. 4. UTI: U/a w/ UTI, continue w/ IV Abx, IVF for hydration. 5. Hypokalemia: replaced. 6. DVT Prophylaxis: SCD/Teds. Ana Gruber MD May 18, 2017 10:41
[2017-05-18 12:11] VITALS: BP 99/58; PULSE 85; RESP 16; TEMP 96.6; O2SAT 92
[2017-05-18 16:00] VITALS: BP 116/75; PULSE 87; RESP 18; TEMP 96.3; O2SAT 96
--- NOTE | 2017-05-18 16:14 | HHI.GIFU ---
Subjective Remarks Lying in bed. Has diffuse abdominal tenderness. (Shira Almeida) Objective Vitals I&O Vital Signs Date Time Temp Pulse Resp B/P Pulse Ox O2 Delivery O2 Flow Rate FiO2 05/18/17 16:00 96.3 87 18 116/75 96 05/18/17 12:11 96.6 85 16 99/58 92 05/18/17 07:43 97.9 90 18 117/75 95 05/18/17 03:51 96.6 82 18 114/67 96 05/17/17 23:41 96.7 85 18 130/79 96 05/17/17 19:48 97.4 72 18 126/75 98 05/17/17 16:50 98.4 84 16 124/81 96 I/O 05/17/17 05/17/17 05/17/17 05/18/17 05/18/17 05/18/17 07:00 15:00 23:00 07:00 15:00 23:00 Intake Total 1416 ml 1710 ml 1265 ml Balance 1416 ml 1710 ml 1265 ml Intake Oral 720 ml 480 ml 480 ml IV Total 696 ml 1230 ml 785 ml # Voids 2 2 2 # Bowel Movements 1 2 0 Laboratory Laboratory Tests Test 05/18/17 07:26 White Blood Count 8.4 Red Blood Count 4.22 Hemoglobin 12.4 Hematocrit 36.8 Mean Corpuscular Volume 87.2 Mean Corpuscular Hemoglobin 29.5 Mean Corpuscular Hemoglobin 33.9 Concent Red Cell Distribution Width 13.2 Platelet Count 147 Mean Platelet Volume 9.8 Neutrophils (%) (Auto) 80.2 Lymphocytes (%) (Auto) 10.2 Monocytes (%) (Auto) 7.5 Eosinophils (%) (Auto) 1.9 Basophils (%) (Auto) 0.2 Neutrophils # (Auto) 6.8 Lymphocytes # (Auto) 0.9 Monocytes # (Auto) 0.6 Eosinophils # (Auto) 0.2 Basophils # (Auto) 0.0 CBC Comment DIFF FINAL Differential Comment Sodium Level 136 Potassium Level 3.6 Chloride Level 104 Carbon Dioxide Level 27.1 Anion Gap 5 Blood Urea Nitrogen 2 Creatinine 0.62 Estimat Glomerular Filtration 104 Rate Random Glucose 86 Calcium Level 7.6 Total Bilirubin 1.3 Aspartate Amino Transf 80 (AST/SGOT) Alanine Aminotransferase 167 (ALT/SGPT) Alkaline Phosphatase 146 Total Protein 5.7 Albumin 2.6 Lipase 2871 Date/Time Procedure Status Source Growth 05/17/17 01:51 Urine Culture - Preliminary Resulted Urine Clean Catch Gram Negative Jaquan Imaging Last Impressions Gall Bladder Ultrasound 05/17/17 0000 Signed Impressions: Service Date/Time: Wednesday, May 17, 2017 02:15 - CONCLUSION: 1. Cholelithiasis with mild gallbladder wall thickening. Cholecystitis is not excluded. Radionuclide imaging is recommended for further evaluation if clinically indicated. Ricky Bland MD Cholangiopancreatography MRI 05/17/17 0000 Signed Impressions: Service Date/Time: Wednesday, May 17, 2017 03:36 - CONCLUSION: 1. Findings of acute pancreatitis. 2. Cholelithiasis without common duct stone Ricky Bland MD Physical Exam HEENT: PERRLA; normocephalic; atraumatic; no jaundice. NECK: Neck is supple, no JVD, no lymphadenopathy. CHEST: CTA CARDIAC: RRR with no murmur gallop or rubs. ABDOMEN: Soft, obese, nondistended, nontender; no hepatosplenomegaly; bowel sounds x 4. EXTREMITIES: No clubbing, cyanosis, or edema. SKIN: Normal; no rash; no jaundice. CH[employer]MAN [employer]: No focal deficits; alert and oriented x 3. (Shira Almeida) Assessment and Plan Plan ASSESS,EMT - Gallstone Pancreatitis. Lipase 24,284 on 05/17, trending down, 2871 today. Gallbladder US w/ cholelithiasis, mild gallbladder wall thickening. Total Bili 8.0 on 05/17, today 1.3. Elevated LFTs,improving. MRCP with acute pancreatitis, cholelithiasis, no CBD stones, labs today pending. GS consulted. Was started on Cipro and Flagyl. She used to drink almost daily, but non recently and she was never a heavy drinker. no family hx of pancreatitis. - Cholecystitis: Gallbladder US w/ possible cholecystitis. GS consulted. IV Abx. - Elevated LFTs: secondary to above. Lipase improving. LFTs improving - UTI- IV Abx - Hypokalemia, improved Plan: - Clear liquids - Await GS consult - Aggressive hydration - Pain meds/ antiemetics - Cont. abx - LFTs, lipase in am - Supportive care - Further recommendations to follow based on results of above Patient seen and examined by Dr. Huang and myself and this note is written on her behalf. (Shira Almeida) Physician Comments seen, examined agree with above no indication for ercp at this point (Mohini Huang MD) Shira Almeida May 18, 2017 16:14 Mohini Huang MD May 18, 2017 20:29
--- NOTE | 2017-05-18 17:23 | HHI.PR ---
Subjective Subjective Notes DAILY PROGRESS NOTE FOR SURGICAL ATTENDING, DR. WOODY FREEMAN Objective Vitals/I&O Vital Signs Date Time Temp Pulse Resp B/P Pulse Ox O2 Delivery O2 Flow Rate FiO2 05/18/17 16:00 96.3 87 18 116/75 96 05/17/17 03:27 Room Air Labs Laboratory Tests Test 05/17/17 05/17/17 05/18/17 01:51 08:23 07:26 Urine Color DARK-BROWN Urine Turbidity HAZY Urine pH 5.0 Urine Specific [place] 1.018 Urine Protein TRACE mg/dL Urine Glucose (UA) NEG mg/dL Urine Ketones 10 mg/dL Urine Occult Blood TRACE Urine Nitrite POS Urine Bilirubin LARGE Urine Urobilinogen 2.0 MG/DL Urine Leukocyte Esterase MOD Urine RBC 2 /hpf Urine WBC 6 /hpf Urine Squamous Epithelial 2 /hpf Cells Urine Bacteria MANY /hpf Urine Mucus FEW /lpf Microscopic Urinalysis Comment CULTURE INDICATED Direct Bilirubin 4.8 MG/DL Indirect Bilirubin 1.4 MG/DL White Blood Count 8.4 TH/MM3 Red Blood Count 4.22 MIL/MM3 Hemoglobin 12.4 GM/DL Hematocrit 36.8 % Mean Corpuscular Volume 87.2 FL Mean Corpuscular Hemoglobin 29.5 PG Mean Corpuscular Hemoglobin 33.9 % Concent Red Cell Distribution Width 13.2 % Platelet Count 147 TH/MM3 Mean Platelet Volume 9.8 FL Neutrophils (%) (Auto) 80.2 % Lymphocytes (%) (Auto) 10.2 % Monocytes (%) (Auto) 7.5 % Eosinophils (%) (Auto) 1.9 % Basophils (%) (Auto) 0.2 % Neutrophils # (Auto) 6.8 TH/MM3 Lymphocytes # (Auto) 0.9 TH/MM3 Monocytes # (Auto) 0.6 TH/MM3 Eosinophils # (Auto) 0.2 TH/MM3 Basophils # (Auto) 0.0 TH/MM3 CBC Comment DIFF FINAL Differential Comment Sodium Level 136 MEQ/L Potassium Level 3.6 MEQ/L Chloride Level 104 MEQ/L Carbon Dioxide Level 27.1 MEQ/L Anion Gap 5 MEQ/L Blood Urea Nitrogen 2 MG/DL Creatinine 0.62 MG/DL Estimat Glomerular Filtration 104 ML/MIN Rate Random Glucose 86 MG/DL Calcium Level 7.6 MG/DL Total Bilirubin 1.3 MG/DL Aspartate Amino Transf 80 U/L (AST/SGOT) Alanine Aminotransferase 167 U/L (ALT/SGPT) Alkaline Phosphatase 146 U/L Total Protein 5.7 GM/DL Albumin 2.6 GM/DL Lipase 2871 U/L Radiology Last Impressions Gall Bladder Ultrasound 05/17/17 0000 Signed Impressions: Service Date/Time: Wednesday, May 17, 2017 02:15 - CONCLUSION: 1. Cholelithiasis with mild gallbladder wall thickening. Cholecystitis is not excluded. Radionuclide imaging is recommended for further evaluation if clinically indicated. Ricky Bland MD Cholangiopancreatography MRI 05/17/17 0000 Signed Impressions: Service Date/Time: Wednesday, May 17, 2017 03:36 - CONCLUSION: 1. Findings of acute pancreatitis. 2. Cholelithiasis without common duct stone Ricky Bland MD Cardiovascular: Regular Lungs: Clear Abdomen: Other (mild soreness) Extremities: Perfused A/P Problem List: (1) Cholecystitis (2) UTI (urinary tract infection) (3) Elevated LFTs (4) Gallstone pancreatitis (5) Elevated amylase Assessment and Plan 46-year-old female with gallstone pancreatitis slowly improving Continue medical therapy Plan cholecystectomy when resolution of her pancreatitis Attending Statement NOTE FOR SURGICAL ATTENDING, DR. WOODY FREEMAN I attest that I had a [id number] encounter with the patient on the same day, and personally performed and documented my assessment and findings in the medical record. The following services were provided during this hospital visit: Chart data review, vital sign assessments/reviewing monitor data Review of consultations notes if present. Medication orders/review and/or management Ordering and/or reviewing lab tests Ordering and/or interpreting/reviewing x-rays and/or diagnostic studies Care of the patient and discussion of the patient with the care team Documentation time To help prompt me to consider important information that might be impacting today's encounter and assessment, information from prior notes written by myself or my colleagues may have been "brought forward/copy and pasted" into today's note. Problem Qualifiers (1) UTI (urinary tract infection): Qualified Code: N30.00 - Acute cystitis without hematuria Woody Freeman MD May 18, 2017 17:23
[2017-05-18 20:55] VITALS: BP 106/64; PULSE 75; RESP 17; TEMP 97.5; O2SAT 94
[2017-05-19] MEDS: ONDANSETRON HCL 4 MG/2 ML VIAL IVP PRN (00:31)
[2017-05-19] MEDS: MORPHINE SULFATE 4 MG/ML INJ IV PRN ×4 (00:34→09:45)
[2017-05-19 00:52] VITALS: BP 119/67; PULSE 88; RESP 18; TEMP 99.5; O2SAT 96
[2017-05-19] MEDS: metroNIDAZOLE 500 MG INJ 100 ML IV SCH ×3 (03:41→18:23)
[2017-05-19] MEDS: SODIUM CHLOR 0.9% 1000 ML INJ 1,000 ML IV SCH (03:42)
[2017-05-19] MEDS: CIPROFLOXACIN 400 MG PREMIX 200 ML IV SCH ×2 (03:42→17:04)
[2017-05-19 08:00] VITALS: BP 104/63; PULSE 82; RESP 16; TEMP 97.9; O2SAT 97
[2017-05-19] MEDS: SODIUM CHLORIDE 0.9% FLUSH 10 ML FLUSH IV FLUSH SCH ×2 (09:00→21:00)
[2017-05-19] MEDS: DOCUSATE SODIUM 50 MG/SENNA 8.6 MG TAB PO SCH ×2 (09:00→22:15)
[2017-05-19 09:20] LABS: ANION GAP 8 MEQ/L (5-15); AST (GOT) 34 U/L (15-37); BICARBONATE 27.3 MEQ/L (21.0-32.0); BLOOD UREA NITROGEN 3 MG/DL (7-18); CHLORIDE 102 MEQ/L (98-107); GLOMERULAR FILTRATION RATE 128 ML/MIN (>89); POTASSIUM 3.4 MEQ/L (3.5-5.1); SODIUM (NA) 137 MEQ/L (136-145)
[2017-05-19 09:24] LABS: ALKALINE PHOSPHATASE 122 U/L (45-117); ALT (GPT) 106 U/L (10-53); TOTAL BILIRUBIN ADULT 0.7 MG/DL (0.2-1.0)
--- NOTE | 2017-05-19 09:41 | HHI.PR ---
Subjective Remarks resting comfortably with no distress. abdominal pain is better. no nausea or vomiting. has mild headache. d/w the RN. Objective Vitals Vital Signs Date Time Temp Pulse Resp B/P Pulse Ox O2 Delivery O2 Flow Rate FiO2 05/19/17 08:00 97.9 82 16 104/63 97 05/19/17 00:52 99.5 88 18 119/67 96 05/18/17 20:55 97.5 75 17 106/64 94 05/18/17 16:00 96.3 87 18 116/75 96 05/18/17 12:11 96.6 85 16 99/58 92 I/O 05/18/17 05/18/17 05/18/17 05/19/17 05/19/17 05/19/17 07:00 15:00 23:00 07:00 15:00 23:00 Intake Total 1265 ml 660 ml 1930 ml 1026 ml Balance 1265 ml 660 ml 1930 ml 1026 ml Intake Oral 480 ml 660 ml 360 ml 240 ml IV Total 785 ml 1570 ml 786 ml # Voids 2 2 2 4 # Bowel Movements 0 0 1 0 Result Diagram: 05/18/17 0726 05/19/17 0816 Imaging Last Impressions Gall Bladder Ultrasound 05/17/17 0000 Signed Impressions: Service Date/Time: Wednesday, May 17, 2017 02:15 - CONCLUSION: 1. Cholelithiasis with mild gallbladder wall thickening. Cholecystitis is not excluded. Radionuclide imaging is recommended for further evaluation if clinically indicated. Ricky Bland MD Cholangiopancreatography MRI 05/17/17 0000 Signed Impressions: Service Date/Time: Wednesday, May 17, 2017 03:36 - CONCLUSION: 1. Findings of acute pancreatitis. 2. Cholelithiasis without common duct stone Ricky Bland MD Objective Remarks GENERAL: This is a well-nourished, well-developed patient, in no apparent distress. CARDIOVASCULAR: Regular rate and regular rhythm without murmurs, gallops, or rubs. RESPIRATORY: Clear to auscultation. Breath sounds equal bilaterally. No wheezes , rales, or rhonchi. GASTROINTESTINAL: Abdomen soft, mild periumbilical tenderness which seems to be improving, nondistended. Normal, active bowel sounds MUSCULOSKELETAL: Extremities without clubbing, cyanosis, or edema. NEURO: Alert & Oriented x4 to person, place, time, situation. Moves all ext x4 Medications and IVs Current Medications Pantoprazole Sodium (Protonix Inj) 40 mg ONCE ONCE IVP Last administered on 01:36; Start 05/17/17 at 01:30; Stop 05/17/17 at 01:31; Status DC Sodium Chloride (NS Flush) 2 ml UNSCH PRN IV FLUSH FLUSH AFTER USING IV ACCESS ; Start 05/17/17 at 01:30 Ciprofloxacin (Cipro) 750 mg ONCE ONCE PO Last administered on 05/17/17 02:46 ; Start 05/17/17 at 02:30; Stop 05/17/17 at 02:31; Status DC Potassium Chloride (KCl) 60 meq ONCE ONCE PO Last administered on 05/17/17 02: 47; Start 05/17/17 at 02:45; Stop 05/17/17 at 02:46; Status DC Morphine Sulfate 4 mg 4 mg ONCE ONCE IV PUSH Last administered on 05/17/17 03: 14; Start 05/17/17 at 03:15; Stop 05/17/17 at 03:16; Status DC Ciprofloxacin/ Dextrose 200 ml @ 200 mls/hr ONCE ONCE IV ; Start 05/17/17 at 03 :15; Stop 05/17/17 at 04:14; Status DC Metronidazole (Flagyl 500 Mg Inj) 100 ml @ 100 mls/hr ONCE ONCE IV Last administered on 05/17/17 03:19; Start 05/17/17 at 03:15; Stop 05/17/17 at 04:14; Status DC Ondansetron HCl 4 mg 4 mg ONCE ONCE IV PUSH ; Start 05/17/17 at 03:15; Stop 05/17 at 03:16; Status DC Ciprofloxacin/ Dextrose 200 ml @ 200 mls/hr Q12H IV ; Start 05/17/17 at 15:00; Stop 05/17/17 at 15:00; Status DC Metronidazole 100 ml @ 100 mls/hr Q8H IV Last administered on 05/19/17 03:41; Start 05/17/17 at 11:00 Sodium Chloride (NS 1000 ml Inj) 1,000 ml @ 100 mls/hr Q10H IV Last administered on 05/19/17 03:42; Start 05/17/17 at 03:19 Sodium Chloride (NS Flush) 2 ml UNSCH PRN IV FLUSH FLUSH AFTER USING IV ACCESS ; Start 05/17/17 at 03:30 Sodium Chloride (NS Flush) 2 ml BID IV FLUSH ; Start 05/17/17 at 09:00 Ondansetron HCl (Zofran Inj) 4 mg Q6H PRN IVP NAUSEA OR VOMITING Last administered on 05/19/17 00:31; Start 05/17/17 at 03:30 Acetaminophen (Tylenol) 650 mg Q6H PRN PO FEVER/PAIN SCALE 1 TO 2 Last administered on 05/18/17 15:48; Start 05/17/17 at 03:30 Morphine Sulfate (Morphine Inj) 1 mg Q3H PRN IV Pain 3-5; Start 05/17/17 at 03: 30 Morphine Sulfate (Morphine Inj) 2 mg Q3H PRN IV Pain 6-10 Last administered on 05/19/17 06:31; Start 05/17/17 at 03:30 Senna/Docusate Sodium (Lynne-Colace) 1 tab BID PO Last administered on 05/17/17 07:57; Start 05/17/17 at 09:00 Magnesium Hydroxide (Milk Of Magnesia Liq) 30 ml Q12H PRN PO MILD - MODERATE CONSTIPATION; Start 05/17/17 at 03:30 Sennosides (Senokot) 17.2 mg Q12H PRN PO MODERATE - SEVERE CONSTIPATION Last administered on 05/17/17 07:57; Start 05/17/17 at 03:30 Bisacodyl (Dulcolax Supp) 10 mg DAILY PRN RECTAL SEVERE CONSITIPATION; Start at 03:30 Lactulose 30 ml 30 ml DAILY PRN PO SEVERE CONSITIPATION Last administered on 07:58; Start 05/17/17 at 03:30 Ciprofloxacin/ Dextrose (Cipro 400 Mg Premix) 200 ml @ 200 mls/hr Q12H IV Last administered on 05/19/17 03:42; Start 05/17/17 at 16:00 A/P Assessment and Plan A/P 1. Pancreatitis: Gallstone Pancreatitis- improving. MRCP with cholelithiasis without common duct stone. on liquid diet- continue pain control- GI and general surgery following- plan for cholecystectomy- per general surgery. 2. Cholecystitis: Gallbladder US w/ possible cholecystitis.Gen Sx consulted as above, continue w/ IV Abx. 3. Elevated LFTs: secondary to above-improving.. will monitor. 4. UTI: UC with e-coli- continue w/ IV Abx, IVF for hydration. 5. Hypokalemia: will replace. 6. DVT Prophylaxis: SCD/Teds. Ana Gruber MD May 19, 2017 09:41
[2017-05-19 12:00] VITALS: BP 99/61; PULSE 77; RESP 20; TEMP 98.2; O2SAT 94
--- NOTE | 2017-05-19 15:49 | HHI.GIFU ---
Subjective Remarks Resting in bed. C/O persistent bloating. Abdominal pain improving. States she is sick of clear liquid diet and has not had anything to eat since . Wanting diet advanced. Objective Vitals I&O Vital Signs Date Time Temp Pulse Resp B/P Pulse Ox O2 Delivery O2 Flow Rate FiO2 05/19/17 08:00 97.9 82 16 104/63 97 05/19/17 00:52 99.5 88 18 119/67 96 05/18/17 20:55 97.5 75 17 106/64 94 05/18/17 16:00 96.3 87 18 116/75 96 I/O 05/18/17 05/18/17 05/18/17 05/19/17 05/19/17 05/19/17 07:00 15:00 23:00 07:00 15:00 23:00 Intake Total 1265 ml 660 ml 1930 ml 1026 ml Balance 1265 ml 660 ml 1930 ml 1026 ml Intake Oral 480 ml 660 ml 360 ml 240 ml IV Total 785 ml 1570 ml 786 ml # Voids 2 2 2 4 # Bowel Movements 0 0 1 0 Laboratory Laboratory Tests Test 05/19/17 08:16 Sodium Level 137 Potassium Level 3.4 Chloride Level 102 Carbon Dioxide Level 27.3 Anion Gap 8 Blood Urea Nitrogen 3 Creatinine 0.52 Estimat Glomerular Filtration 128 Rate Random Glucose 86 Calcium Level 7.7 Total Bilirubin 0.7 Aspartate Amino Transf 34 (AST/SGOT) Alanine Aminotransferase 106 (ALT/SGPT) Alkaline Phosphatase 122 Total Protein 5.5 Albumin 2.3 Lipase 521 Date/Time Procedure Status Source Growth 05/17/17 01:51 Urine Culture - Final Complete Urine Clean Catch Escherichia Coli Imaging Last Impressions Gall Bladder Ultrasound 05/17/17 0000 Signed Impressions: Service Date/Time: Wednesday, May 17, 2017 02:15 - CONCLUSION: 1. Cholelithiasis with mild gallbladder wall thickening. Cholecystitis is not excluded. Radionuclide imaging is recommended for further evaluation if clinically indicated. Ricky Bland MD Cholangiopancreatography MRI 05/17/17 0000 Signed Impressions: Service Date/Time: Wednesday, May 17, 2017 03:36 - CONCLUSION: 1. Findings of acute pancreatitis. 2. Cholelithiasis without common duct stone Ricky Bland MD Physical Exam HEENT: Normocephalic; atraumatic; no jaundice. NECK: Neck is supple, no JVD, no lymphadenopathy. CHEST: CTA CARDIAC: RRR with no murmur gallop or rubs. ABDOMEN: Soft, mildly bloated, nontender; no hepatosplenomegaly; bowel sounds x 4. EXTREMITIES: No clubbing, cyanosis, or edema. SKIN: Normal; no rash; no jaundice. SOFTWARE SECURITY ARCHITECT: No focal deficits; alert and oriented x 3. Assessment and Plan Plan ASSESSMENT: - Gallstone Pancreatitis. She used to drink almost daily, but non recently and she was never a heavy drinker. No family hx of pancreatitis. MRCP (05/17/17)------> 1. Findings of acute pancreatitis. 2. Cholelithiasis without common duct stone. GB Ultrasound (05/17/17)---> 1. Cholelithiasis with mild gallbladder wall thickening. Cholecystitis is not excluded. Radionuclide imaging is recommended for further evaluation if clinically indicated. Lipase improving, down to 521. LFTs improving, T. Bili 0.7, AST 34, ALT 106, Alk Phosph 122. Cipro/Flagyl - Cholecystitis/Cholecystitis. GS following, plan is for cholecystectomy once pancreatitis resolves. Cipro/Flagyl - Elevated LFTs: secondary to above. Lipase improving. LFTs improving - UTI- IV Abx - Hypokalemia, improved Plan: - Full liquids - NPO after MN, in case GS wants to do cholecystectomy tomorrow, if no plans for surgery tomorrow, can have full liquids - Flagyl, Cipro - LFT, Lipase in am - Supportive care - Further recommendations to follow based on results of above - Patient seen and examined by Dr. Barrera and myself and this note is written on his behalf. Ana Cristina Arnold [facility] May 19, 2017 15:50
[2017-05-19 16:00] VITALS: BP 99/66; PULSE 84; RESP 16; TEMP 97.9; O2SAT 94
--- NOTE | 2017-05-19 16:57 | HHI.PR ---
Subjective Subjective Notes Resting in bed Nervous about having surgical procedure Objective Vitals/I&O Vital Signs Date Time Temp Pulse Resp B/P Pulse Ox O2 Delivery O2 Flow Rate FiO2 05/19/17 08:00 97.9 82 16 104/63 97 05/17/17 03:27 Room Air Labs Laboratory Tests Test 05/19/17 08:16 Sodium Level 137 Potassium Level 3.4 Chloride Level 102 Carbon Dioxide Level 27.3 Anion Gap 8 Blood Urea Nitrogen 3 Creatinine 0.52 Estimat Glomerular Filtration 128 Rate Random Glucose 86 Calcium Level 7.7 Total Bilirubin 0.7 Aspartate Amino Transf 34 (AST/SGOT) Alanine Aminotransferase 106 (ALT/SGPT) Alkaline Phosphatase 122 Total Protein 5.5 Albumin 2.3 Lipase 521 Date/Time Procedure Status Source Growth 05/17/17 01:51 Urine Culture - Final Complete Urine Clean Catch Escherichia Coli Radiology Last Impressions Gall Bladder Ultrasound 05/17/17 0000 Signed Impressions: Service Date/Time: Wednesday, May 17, 2017 02:15 - CONCLUSION: 1. Cholelithiasis with mild gallbladder wall thickening. Cholecystitis is not excluded. Radionuclide imaging is recommended for further evaluation if clinically indicated. Ricky Bland MD Cholangiopancreatography MRI 05/17/17 0000 Signed Impressions: Service Date/Time: Wednesday, May 17, 2017 03:36 - CONCLUSION: 1. Findings of acute pancreatitis. 2. Cholelithiasis without common duct stone Ricky Bland MD Cardiovascular: Regular Lungs: Clear Abdomen: Other (minimal RUQ tenderness with palpation ) Extremities: No edema A/P Problem List: (1) Cholecystitis (2) UTI (urinary tract infection) (3) Elevated LFTs (4) Gallstone pancreatitis (5) Elevated amylase Assessment and Plan 46 year old female with GS pancreatitis -Lipase continues to trend down; today 521 -Advance to full liquids; NPO after MN -Lap zafar planned for tomorrow -Obtain consents Attending Statement patient seen and examined at bedside pain better labs trending down will check am labs and plan for lap zafar tomorrow Attestation The exam, history, and the medical decision-making described in the above note were completed with the assistance of the mid-level provider. I reviewed and agree with the findings presented. I attest that I had a [id number] encounter with the patient on the same day, and personally performed and documented my assessment and findings in the medical record. Problem Qualifiers (1) UTI (urinary tract infection): Qualified Code: N30.00 - Acute cystitis without hematuria Bridget Loja May 19, 2017 16:57 Niles Wu MD May 22, 2017 21:17
[2017-05-19 19:34] VITALS: BP 130/72; PULSE 86; RESP 18; TEMP 96.7; O2SAT 97
[2017-05-19] MEDS ORDERED: POVIDONE IODINE 5% (ANTISEPSIS KIT) 4 APPLICATIONS EACH NARE PRN (22:30)
[2017-05-19] MEDS ORDERED: SODIUM CHLORID 0.9% 500 ML IV PRN (22:30)
[2017-05-19] MEDS ORDERED: CHLORHEXIDINE GLUCONATE 2 % 1 PACK (2 CLOTHS) TOPICAL PRN (22:30)
[2017-05-19] MEDS ORDERED: LACTATED RINGER'S 1000 ML IV PRN (22:30)
[2017-05-19 23:19] VITALS: BP 118/71; PULSE 64; RESP 18; TEMP 98.4; O2SAT 94
[2017-05-20] VITALS (7 sets, daily range): BP systolic 98–147; BP diastolic 61–85; PULSE 78–96; RESP 17–19; TEMP 96.3–97.6; O2SAT 93–98
[2017-05-20] MEDS: metroNIDAZOLE 500 MG INJ 100 ML IV SCH ×4 (03:00→22:28)
[2017-05-20] MEDS: NS + KCL 20 MEQ INJ 1,000 ML IV SCH ×3 (05:42→22:37)
[2017-05-20] MEDS: CIPROFLOXACIN 400 MG PREMIX 200 ML IV SCH ×2 (05:42→18:06)
--- NOTE | 2017-05-20 07:04 | HHI.PR ---
Subjective Remarks in no acute distress. has some abdominal pain. no nausea or vomiting. afebrile. d/w the RN. Objective Vitals Vital Signs Date Time Temp Pulse Resp B/P Pulse Ox O2 Delivery O2 Flow Rate FiO2 05/20/17 03:00 96.7 84 18 136/74 96 05/19/17 23:19 98.4 64 18 118/71 94 05/19/17 19:34 96.7 86 18 130/72 97 05/19/17 16:00 97.9 84 16 99/66 94 05/19/17 12:00 98.2 77 20 99/61 94 05/19/17 08:00 97.9 82 16 104/63 97 I/O 05/19/17 05/19/17 05/19/17 05/20/17 05/20/17 05/20/17 07:00 15:00 23:00 07:00 15:00 23:00 Intake Total 1026 ml 1390 ml 480 ml 0 ml Balance 1026 ml 1390 ml 480 ml 0 ml Intake Oral 240 ml 280 ml 480 ml 0 ml IV Total 786 ml 1110 ml # Voids 4 2 4 2 # Bowel Movements 0 0 0 0 Result Diagram: 05/18/17 0726 05/19/17 0816 Imaging Last Impressions Gall Bladder Ultrasound 05/17/17 0000 Signed Impressions: Service Date/Time: Wednesday, May 17, 2017 02:15 - CONCLUSION: 1. Cholelithiasis with mild gallbladder wall thickening. Cholecystitis is not excluded. Radionuclide imaging is recommended for further evaluation if clinically indicated. iRcky Bland MD Cholangiopancreatography MRI 05/17/17 0000 Signed Impressions: Service Date/Time: Wednesday, May 17, 2017 03:36 - CONCLUSION: 1. Findings of acute pancreatitis. 2. Cholelithiasis without common duct stone Ricky Bland MD Objective Remarks GENERAL: This is a well-nourished, well-developed patient, in no apparent distress. CARDIOVASCULAR: Regular rate and regular rhythm without murmurs, gallops, or rubs. RESPIRATORY: Clear to auscultation. Breath sounds equal bilaterally. No wheezes , rales, or rhonchi. GASTROINTESTINAL: Abdomen soft, mild periumbilical tenderness which seems to be improving, nondistended. Normal, active bowel sounds MUSCULOSKELETAL: Extremities without clubbing, cyanosis, or edema. NEURO: Alert & Oriented x4 to person, place, time, situation. Moves all ext x4 Medications and IVs Current Medications Pantoprazole Sodium (Protonix Inj) 40 mg ONCE ONCE IVP Last administered on 01:36; Start 05/17/17 at 01:30; Stop 05/17/17 at 01:31; Status DC Sodium Chloride (NS Flush) 2 ml UNSCH PRN IV FLUSH FLUSH AFTER USING IV ACCESS ; Start 05/17/17 at 01:30; Stop 05/19/17 at 22:21; Status DC Ciprofloxacin (Cipro) 750 mg ONCE ONCE PO Last administered on 05/17/17 02:46 ; Start 05/17/17 at 02:30; Stop 05/17/17 at 02:31; Status DC Potassium Chloride (KCl) 60 meq ONCE ONCE PO Last administered on 05/17/17 02: 47; Start 05/17/17 at 02:45; Stop 05/17/17 at 02:46; Status DC Morphine Sulfate 4 mg 4 mg ONCE ONCE IV PUSH Last administered on 05/17/17 03: 14; Start 05/17/17 at 03:15; Stop 05/17/17 at 03:16; Status DC Ciprofloxacin/ Dextrose 200 ml @ 200 mls/hr ONCE ONCE IV ; Start 05/17/17 at 03 :15; Stop 05/17/17 at 04:14; Status DC Metronidazole (Flagyl 500 Mg Inj) 100 ml @ 100 mls/hr ONCE ONCE IV Last administered on 05/17/17 03:19; Start 05/17/17 at 03:15; Stop 05/17/17 at 04:14; Status DC Ondansetron HCl 4 mg 4 mg ONCE ONCE IV PUSH ; Start 05/17/17 at 03:15; Stop 05/17 at 03:16; Status DC Ciprofloxacin/ Dextrose 200 ml @ 200 mls/hr Q12H IV ; Start 05/17/17 at 15:00; Stop 05/17/17 at 15:00; Status DC Metronidazole 100 ml @ 100 mls/hr Q8H IV Last administered on 05/20/17 03:00; Start 05/17/17 at 11:00 Sodium Chloride (NS 1000 ml Inj) 1,000 ml @ 100 mls/hr Q10H IV Last administered on 05/19/17 03:42; Start 05/17/17 at 03:19; Stop 05/19/17 at 09:43; Status DC Sodium Chloride (NS Flush) 2 ml UNSCH PRN IV FLUSH FLUSH AFTER USING IV ACCESS ; Start 05/17/17 at 03:30 Sodium Chloride (NS Flush) 2 ml BID IV FLUSH ; Start 05/17/17 at 09:00 Ondansetron HCl (Zofran Inj) 4 mg Q6H PRN IVP NAUSEA OR VOMITING Last administered on 05/19/17 00:31; Start 05/17/17 at 03:30 Acetaminophen (Tylenol) 650 mg Q6H PRN PO FEVER/PAIN 1-2/HEADACHE Last administered on 05/18/17 15:48; Start 05/17/17 at 03:30 Morphine Sulfate (Morphine Inj) 1 mg Q3H PRN IV Pain 3-5; Start 05/17/17 at 03: 30 Morphine Sulfate (Morphine Inj) 2 mg Q3H PRN IV Pain 6-10 Last administered on 05/19/17 09:45; Start 05/17/17 at 03:30 Senna/Docusate Sodium (Lynne-Colace) 1 tab BID PO Last administered on 05/19/17 22:15; Start 05/17/17 at 09:00 Magnesium Hydroxide (Milk Of Magnesia Liq) 30 ml Q12H PRN PO MILD - MODERATE CONSTIPATION; Start 05/17/17 at 03:30 Sennosides (Senokot) 17.2 mg Q12H PRN PO MODERATE - SEVERE CONSTIPATION Last administered on 05/17/17 07:57; Start 05/17/17 at 03:30 Bisacodyl (Dulcolax Supp) 10 mg DAILY PRN RECTAL SEVERE CONSITIPATION; Start at 03:30 Lactulose 30 ml 30 ml DAILY PRN PO SEVERE CONSITIPATION Last administered on 07:58; Start 05/17/17 at 03:30 Ciprofloxacin/ Dextrose 200 ml @ 200 mls/hr Q12H IV Last administered on 05:42; Start 05/17/17 at 16:00 Potassium Chloride/Sodium Chloride 1,000 ml @ 100 mls/hr Q10H IV Last administered on 05/20/17t 05:42; Start 05/20/17 at 03:19 Lactated Ringer's 1,000 ml @ 30 mls/hr Q24H PRN IV SEE LABEL COMMENTS; Start at 22:30; Stop 05/22/17 at 22:29 Sodium Chloride (NS 500 ml Inj) 500 ml @ 30 mls/hr [id number] PRN IV SEE LABEL COMMENTS; Start 05/19/17 at 22:30; Stop 05/22/17 at 22:29 Povidone Iodine (Betadine 5% Antisepsis Kit) 1 applic OIL WELL FISHING TOOL TECHNICIAN PRN EACH NARE SEE LABEL COMMENTS; Start 05/19/17 at 22:30; Stop 05/22/17 at 22:29 Chlorhexidine Gluconate (Chlorhexidine 2% Cloth) 3 pack OIL WELL FISHING TOOL TECHNICIAN PRN TOPICAL SEE LABEL COMMENTS; Start 05/19/17 at 22:30; Stop 05/22/17 at 22:29 A/P Assessment and Plan A/P 1. Pancreatitis: Gallstone Pancreatitis- improving. MRCP with cholelithiasis without common duct stone. NPO for planned surgery- continue pain control- GI and general surgery following; plan for cholecystectomy today. 2. Cholecystitis: Gallbladder US w/ possible cholecystitis.Gen Sx consulted as above, continue w/ IV Abx. cholecystectomy today. 3. Elevated LFTs: secondary to above-improving.. will monitor. 4. UTI: UC with e-coli- continue w/ IV Abx, IVF for hydration. 5. Hypokalemia: replaced. 6. DVT Prophylaxis: SCD/Teds. Discharge Planning awaiting cholecystectomy. Ana Gruber MD May 20, 2017 07:04
[2017-05-20] MEDS ORDERED: CIPR-9 PO (07:06)
[2017-05-20] MEDS ORDERED: NORC5TAB PO (07:06)
[2017-05-20] MEDS: DOCUSATE SODIUM 50 MG/SENNA 8.6 MG TAB PO SCH ×2 (09:00→21:00)
[2017-05-20] MEDS: SODIUM CHLORIDE 0.9% FLUSH 10 ML FLUSH IV FLUSH SCH ×2 (09:00→21:00)
[2017-05-20 10:09] LABS: INDIRECT BILIRUBIN 0.4 MG/DL (0.0-0.8); TOTAL BILIRUBIN ADULT 0.7 MG/DL (0.2-1.0)
--- NOTE | 2017-05-20 11:57 | HHI.PR ---
Immediate Post Op Note Procedure Date: May 20, 2017 Pre Op Diagnosis: gallstone pancreatitis Post Op Diagnosis: same Surgeon: Niles Wu MD [facility] Supervisor(s): see or sheet Procedure: lap zafar Findings: gallbladder with stones Complications: none Specimen(s) removed: gallbladder Estimated blood loss: 5cc Anesthesia: General Drains: None IVF Patient to: PACU Patient Condition: Good Niles Wu MD May 20, 2017 11:57
[2017-05-20] MEDS ORDERED: ONDANSETRON HCL 4 MG/2 ML VIAL IV PUSH ONE (12:00)
[2017-05-20] MEDS ORDERED: PROPOFOL 200 MG/20 ML AMP IV ONE (12:00)
[2017-05-20] MEDS ORDERED: NEOSTIGMINE 3 MG/3 ML SYR IV ONE (12:00)
[2017-05-20] MEDS ORDERED: BUPIVACAINE/EPINEPHRINE 0.25% PF 30 ML VIAL ONE (12:00)
[2017-05-20] MEDS ORDERED: *morphine SULFATE 8 MG/ML PERIprocedure ONLY ONE ×3 (12:23→12:49)
[2017-05-20] MEDS ORDERED: MIDAZOLAM HCL 2 MG/2 ML VIAL ONE (12:29)
[2017-05-20] MEDS ORDERED: fentaNYL CITRATE 250 MCG/5 ML AMP ONE (12:30)
[2017-05-20] MEDS ORDERED: DO NOT ADM ANY ANTICOAGULANT DRUGS PRN (15:15)
--- NOTE | 2017-05-20 15:22 | HHI.GIFU ---
Subjective Remarks Resting in bed. Had laparoscopic cholecystectomy earlier today. Still drowsy from anesthesia/meds. Has taken a few sips. Pain controlled. Objective Vitals I&O Vital Signs Date Time Temp Pulse Resp B/P Pulse Ox O2 Delivery O2 Flow Rate FiO2 05/20/17 13:40 97.1 85 17 104/62 96 05/20/17 13:00 98.2 95 15 103/66 96 Nasal Cannula 2 05/20/17 12:45 92 14 103/61 94 Nasal Cannula 2 05/20/17 12:30 100 15 103/60 95 Nasal Cannula 2 05/20/17 12:15 108 20 115/63 95 Nasal Cannula 2 05/20/17 12:11 98.3 108 16 124/73 97 Nasal Cannula 2 05/20/17 08:00 96.3 96 18 139/85 96 05/20/17 03:00 96.7 84 18 136/74 96 05/19/17 23:19 98.4 64 18 118/71 94 05/19/17 19:34 96.7 86 18 130/72 97 05/19/17 16:00 97.9 84 16 99/66 94 I/O 05/19/17 05/19/17 05/19/17 05/20/17 05/20/17 05/20/17 06:59 14:59 22:59 06:59 14:59 22:59 Intake Total 1026 ml 1110 ml 760 ml 0 ml 1100 ml Output Total 20 ml Balance 1026 ml 1110 ml 760 ml 0 ml 1080 ml Intake Oral 240 ml 760 ml 0 ml 0 ml IV Total 786 ml 1110 ml 300 ml Other 800 ml Output Urine Total 0 ml Estimated Blood Loss 20 ml # Voids 4 6 2 0 # Bowel Movements 0 0 0 Laboratory Laboratory Tests Test 05/20/17 07:47 Total Bilirubin 0.7 Direct Bilirubin 0.3 Indirect Bilirubin 0.4 Aspartate Amino Transf 23 (AST/SGOT) Alanine Aminotransferase 87 (ALT/SGPT) Alkaline Phosphatase 115 Total Protein 6.2 Albumin 2.5 Lipase 300 Date/Time Procedure Status Source Growth 05/17/17 01:51 Urine Culture - Final Complete Urine Clean Catch Escherichia Coli Imaging Last Impressions Gall Bladder Ultrasound 05/17/17 0000 Signed Impressions: Service Date/Time: Wednesday, May 17, 2017 02:15 - CONCLUSION: 1. Cholelithiasis with mild gallbladder wall thickening. Cholecystitis is not excluded. Radionuclide imaging is recommended for further evaluation if clinically indicated. Ricky Bland MD Cholangiopancreatography MRI 05/17/17 0000 Signed Impressions: Service Date/Time: Wednesday, May 17, 2017 03:36 - CONCLUSION: 1. Findings of acute pancreatitis. 2. Cholelithiasis without common duct stone Ricky Bland MD Physical Exam HEENT: Normocephalic; atraumatic; no jaundice. NECK: Neck is supple, no JVD, no lymphadenopathy. CHEST: CTA CARDIAC: RRR with no murmur gallop or rubs. ABDOMEN: Soft, mildly bloated, mild tenderness; no hepatosplenomegaly; bowel sounds x 4. EXTREMITIES: No clubbing, cyanosis, or edema. SKIN: Normal; no rash; no jaundice. TEXTILE TECHNOLOGIST: Lethargic, but arousable and oriented x 3. Assessment and Plan Plan ASSESSMENT: - Gallstone Pancreatitis. She used to drink almost daily, but non recently and she was never a heavy drinker. No family hx of pancreatitis. MRCP (05/17/17)------> 1. Findings of acute pancreatitis. 2. Cholelithiasis without common duct stone. GB Ultrasound (05/17/17)---> 1. Cholelithiasis with mild gallbladder wall thickening. Cholecystitis is not excluded. Radionuclide imaging is recommended for further evaluation if clinically indicated. Lipase down to 300. LFTs are trending down as well, T. Bili 0.7, AST 23, ALT 87, Alk Phosph 115. S/P Lap. Zafar, POD #0. Pain controlled. Cipro/Flagyl - Cholecystitis/Cholecystitis. S/P Lap zafar, POD #0. Cipro/Flagyl - Elevated LFTs, improving. - UTI- IV Abx - Hypokalemia, improved Plan: - Diet per GS - Abx per GS - Likely passed stone, s/p lap. zafar. Lipase and LFTs improving - GI will sign off, please reconsult as needed - Patient seen and examined by Dr. Barrera and myself and this note is written on his behalf. Ana Cristina Arnold [facility] May 20, 2017 15:22
[2017-05-21] VITALS (8 sets, daily range): BP systolic 99–122; BP diastolic 64–73; PULSE 73–90; RESP 17–18; TEMP 95.9–97.7; O2SAT 95–99
[2017-05-21] MEDS: CIPROFLOXACIN 400 MG PREMIX 200 ML IV SCH ×2 (04:37→16:36)
[2017-05-21] MEDS: metroNIDAZOLE 500 MG INJ 100 ML IV SCH ×3 (04:41→17:57)
[2017-05-21] MEDS: MORPHINE SULFATE 4 MG/ML INJ IV PRN (05:48)
[2017-05-21] MEDS: DOCUSATE SODIUM 50 MG/SENNA 8.6 MG TAB PO SCH ×2 (09:00→19:46)
[2017-05-21] MEDS: SODIUM CHLORIDE 0.9% FLUSH 10 ML FLUSH IV FLUSH SCH ×2 (09:00→19:46)
--- NOTE | 2017-05-21 09:18 | HHI.PR ---
Subjective Remarks resting comfortably with no distress. has some abdominal pain. no nausea or vomiting. afebrile. Objective Vitals Vital Signs Date Time Temp Pulse Resp B/P Pulse Ox O2 Delivery O2 Flow Rate FiO2 05/21/17 07:55 97.2 77 18 110/70 99 05/21/17 04:30 96.7 83 18 110/71 97 05/21/17 00:44 97.7 79 18 106/73 97 05/20/17 20:42 98 Nasal Cannula 2.00 05/20/17 19:36 97.4 83 18 111/61 93 05/20/17 16:06 96 Nasal Cannula 2.00 05/20/17 16:00 96.3 78 19 98/62 95 05/20/17 13:40 97.1 85 17 104/62 96 05/20/17 13:00 98.2 95 15 103/66 96 Nasal Cannula 2 05/20/17 12:45 92 14 103/61 94 Nasal Cannula 2 05/20/17 12:30 100 15 103/60 95 Nasal Cannula 2 05/20/17 12:15 108 20 115/63 95 Nasal Cannula 2 05/20/17 12:11 98.3 108 16 124/73 97 Nasal Cannula 2 I/O 05/20/17 05/20/17 05/20/17 05/21/17 05/21/17 05/21/17 06:59 14:59 22:59 06:59 14:59 22:59 Intake Total 0 ml 1100 ml 600 ml 360 ml Output Total 20 ml Balance 0 ml 1080 ml 600 ml 360 ml Intake Oral 0 ml 0 ml 600 ml 360 ml IV Total 300 ml Other 800 ml Output Urine Total 0 ml Estimated Blood Loss 20 ml # Voids 2 0 3 2 # Bowel Movements 0 0 0 Result Diagram: 05/18/17 0726 05/19/17 0816 Imaging Last Impressions Gall Bladder Ultrasound 05/17/17 0000 Signed Impressions: Service Date/Time: Wednesday, May 17, 2017 02:15 - CONCLUSION: 1. Cholelithiasis with mild gallbladder wall thickening. Cholecystitis is not excluded. Radionuclide imaging is recommended for further evaluation if clinically indicated. Ricky Bland MD Cholangiopancreatography MRI 05/17/17 0000 Signed Impressions: Service Date/Time: Wednesday, May 17, 2017 03:36 - CONCLUSION: 1. Findings of acute pancreatitis. 2. Cholelithiasis without common duct stone Ricky Bland MD Objective Remarks GENERAL: This is a well-nourished, well-developed patient, in no apparent distress. CARDIOVASCULAR: Regular rate and regular rhythm without murmurs, gallops, or rubs. RESPIRATORY: Clear to auscultation. Breath sounds equal bilaterally. No wheezes , rales, or rhonchi. GASTROINTESTINAL: Abdomen soft, mild periumbilical tenderness which seems to be improving, nondistended. Normal, active bowel sounds MUSCULOSKELETAL: Extremities without clubbing, cyanosis, or edema. NEURO: Alert & Oriented x4 to person, place, time, situation. Moves all ext x4 Procedures laparoscopic cholecystectomy. Medications and IVs Current Medications Pantoprazole Sodium (Protonix Inj) 40 mg ONCE ONCE IVP Last administered on 01:36; Start 05/17/17 at 01:30; Stop 05/17/17 at 01:31; Status DC Sodium Chloride (NS Flush) 2 ml UNSCH PRN IV FLUSH FLUSH AFTER USING IV ACCESS ; Start 05/17/17 at 01:30; Stop 05/19/17 at 22:21; Status DC Ciprofloxacin (Cipro) 750 mg ONCE ONCE PO Last administered on 05/17/17 02:46 ; Start 05/17/17 at 02:30; Stop 05/17/17 at 02:31; Status DC Potassium Chloride (KCl) 60 meq ONCE ONCE PO Last administered on 05/17/17 02: 47; Start 05/17/17 at 02:45; Stop 05/17/17 at 02:46; Status DC Morphine Sulfate 4 mg 4 mg ONCE ONCE IV PUSH Last administered on 05/17/17 03: 14; Start 05/17/17 at 03:15; Stop 05/17/17 at 03:16; Status DC Ciprofloxacin/ Dextrose 200 ml @ 200 mls/hr ONCE ONCE IV ; Start 05/17/17 at 03 :15; Stop 05/17/17 at 04:14; Status DC Metronidazole (Flagyl 500 Mg Inj) 100 ml @ 100 mls/hr ONCE ONCE IV Last administered on 05/17/17 03:19; Start 05/17/17 at 03:15; Stop 05/17/17 at 04:14; Status DC Ondansetron HCl 4 mg 4 mg ONCE ONCE IV PUSH ; Start 05/17/17 at 03:15; Stop 05/17 at 03:16; Status DC Ciprofloxacin/ Dextrose 200 ml @ 200 mls/hr Q12H IV ; Start 05/17/17 at 15:00; Stop 05/17/17 at 15:00; Status DC Metronidazole 100 ml @ 100 mls/hr Q8H IV Last administered on 05/21/17 04:41; Start 05/17/17 at 11:00 Sodium Chloride (NS 1000 ml Inj) 1,000 ml @ 100 mls/hr Q10H IV Last administered on 05/19/17 03:42; Start 05/17/17 at 03:19; Stop 05/19/17 at 09:43; Status DC Sodium Chloride (NS Flush) 2 ml UNSCH PRN IV FLUSH FLUSH AFTER USING IV ACCESS ; Start 05/17/17 at 03:30 Sodium Chloride (NS Flush) 2 ml BID IV FLUSH Last administered on 05/20/17 09: 00; Start 05/17/17 at 09:00 Ondansetron HCl (Zofran Inj) 4 mg Q6H PRN IVP NAUSEA OR VOMITING Last administered on 05/19/17 00:31; Start 05/17/17 at 03:30 Acetaminophen (Tylenol) 650 mg Q6H PRN PO FEVER/PAIN 1-2/HEADACHE Last administered on 05/18/17 15:48; Start 05/17/17 at 03:30 Morphine Sulfate (Morphine Inj) 1 mg Q3H PRN IV Pain 3-5; Start 05/17/17 at 03: 30 Morphine Sulfate (Morphine Inj) 2 mg Q3H PRN IV Pain 6-10 Last administered on 05/21/17 05:48; Start 05/17/17 at 03:30 Senna/Docusate Sodium (Lynne-Colace) 1 tab BID PO Last administered on 05/19/17 22:15; Start 05/17/17 at 09:00 Magnesium Hydroxide (Milk Of Magnesia Liq) 30 ml Q12H PRN PO MILD - MODERATE CONSTIPATION; Start 05/17/17 at 03:30 Sennosides (Senokot) 17.2 mg Q12H PRN PO MODERATE - SEVERE CONSTIPATION Last administered on 05/17/17 07:57; Start 05/17/17 at 03:30 Bisacodyl (Dulcolax Supp) 10 mg DAILY PRN RECTAL SEVERE CONSITIPATION; Start at 03:30 Lactulose 30 ml 30 ml DAILY PRN PO SEVERE CONSITIPATION Last administered on 07:58; Start 05/17/17 at 03:30 Ciprofloxacin/ Dextrose 200 ml @ 200 mls/hr Q12H IV Last administered on 04:37; Start 05/17/17 at 16:00 Potassium Chloride/Sodium Chloride 1,000 ml @ 100 mls/hr Q10H IV Last administered on 05/20/17 22:37; Start 05/20/17 at 03:19 Lactated Ringer's 1,000 ml @ 30 mls/hr Q24H PRN IV SEE LABEL COMMENTS Last administered on 05/20/17 12:35; Start 05/19/17 at 22:30; Stop 05/22/17 at 22:29 Sodium Chloride (NS 500 ml Inj) 500 ml @ 30 mls/hr [id number] PRN IV SEE LABEL COMMENTS; Start 05/19/17 at 22:30; Stop 05/22/17 at 22:29 Povidone Iodine (Betadine 5% Antisepsis Kit) 1 applic PAINTER HELPER SPRAY PRN EACH NARE SEE LABEL COMMENTS; Start 05/19/17 at 22:30; Stop 05/22/17 at 22:29 Chlorhexidine Gluconate (Chlorhexidine 2% Cloth) 3 pack PAINTER HELPER SPRAY PRN TOPICAL SEE LABEL COMMENTS; Start 05/19/17 at 22:30; Stop 05/22/17 at 22:29 Oxycodone/ Acetaminophen (Percocet 5-325 Mg) 2 tab Q4H PRN PO pain scale 1-5; Start 05/20/17 at 12:00 Morphine Sulfate (*morphine INJ PERIprocedure ONLY) 8 mg STK-MED ONCE .ROUTE Last administered on 05/20/17 12:23; Start 05/20/17 at 12:23; Stop 05/20/17 at 12: 24; Status DC Midazolam HCl (Versed Inj) 2 mg STK-MED ONCE .ROUTE ; Start 05/20/17 at 12:29; Stop 05/20/17 at 12:30; Status DC Fentanyl Citrate (fentaNYL INJ) 250 mcg STK-MED ONCE .ROUTE ; Start 05/20/17 at 12:30; Stop 05/20/17 at 12:31; Status DC Morphine Sulfate (*morphine INJ PERIprocedure ONLY) 8 mg STK-MED ONCE .ROUTE Last administered on 05/20/17 12:39; Start 05/20/17 at 12:39; Stop 05/20/17 at 12: 40; Status DC Morphine Sulfate (*morphine INJ PERIprocedure ONLY) 8 mg STK-MED ONCE .ROUTE Last administered on 05/20/17 12:49; Start 05/20/17 at 12:49; Stop 05/20/17 at 12: 50; Status DC Miscellaneous Information ALL NURSING DEPARTME... UNSCH PRN .XX SEE LABEL COMMENTS; Start 05/20/17 at 15:15; Stop 05/21/17 at 15:14 A/P Assessment and Plan A/P 1. Pancreatitis: Gallstone Pancreatitis- MRCP with cholelithiasis without common duct stone. s/p laparoscopic cholecystectomy- general surgery following. GI has signed off. 2. Cholecystitis: s/p cholecystectomy- as noted above. 3. Elevated LFTs: secondary to above-improving.. 4. UTI: UC with e-coli- continue w/ IV Abx. 5. Hypokalemia: replaced. 6. DVT Prophylaxis: SCD/Teds. Discharge Planning dc home when cleared by general surgery. Ana Gruber MD May 21, 2017 09:18
[2017-05-21] MEDS: NS + KCL 20 MEQ INJ 1,000 ML IV SCH (09:54)
[2017-05-21] MEDS: oxyCODONE/ACETAMINOPHEN 5 MG/325 MG TAB PO PRN ×3 (09:56→23:30)
--- NOTE | 2017-05-21 15:41 | HHI.PR ---
Subjective Subjective Notes Ambulating in room No issues Pain controlled Objective Vitals/I&O Vital Signs Date Time Temp Pulse Resp B/P Pulse Ox O2 Delivery O2 Flow Rate FiO2 05/21/17 11:34 97.0 90 18 99/64 95 05/20/17 20:42 Nasal Cannula 2.00 Labs Date/Time Procedure Status Source Growth 05/17/17 01:51 Urine Culture - Final Complete Urine Clean Catch Escherichia Coli Radiology Last Impressions Gall Bladder Ultrasound 05/17/17 0000 Signed Impressions: Service Date/Time: Wednesday, May 17, 2017 02:15 - CONCLUSION: 1. Cholelithiasis with mild gallbladder wall thickening. Cholecystitis is not excluded. Radionuclide imaging is recommended for further evaluation if clinically indicated. Ricky Bland MD Cholangiopancreatography MRI 05/17/17 0000 Signed Impressions: Service Date/Time: Wednesday, May 17, 2017 03:36 - CONCLUSION: 1. Findings of acute pancreatitis. 2. Cholelithiasis without common duct stone Ricky Bland MD Cardiovascular: Regular Lungs: Clear Abdomen: Other (lap sites c/d/i; abdomen soft; minimally tender ) Extremities: No edema A/P Problem List: (1) Cholecystitis (2) UTI (urinary tract infection) (3) Elevated LFTs (4) Gallstone pancreatitis (5) Elevated amylase Assessment and Plan 46 year old female with GS pancreatitis -POD1 lap zafar; no complications -Advance to heart healthy diet -Await labs -OOB as tolerated -Pain control -Plan to DC when tolerating regular diet + pain controlled on oral pain medications Problem Qualifiers (1) UTI (urinary tract infection): Qualified Code: N30.00 - Acute cystitis without hematuria Bridget Loja May 21, 2017 15:41
[2017-05-21 15:53] LABS: AUTOMATED NEUTROPHIL # 3.9 TH/MM3 (1.8-7.7); BASOPHIL % 0.6 % (0.0-2.0); EOSINOPHIL # 0.2 TH/MM3 (0-0.4); EOSINOPHIL % 3.7 % (0.0-4.0); HEMO FLAGS DIFF FINAL; LYMPH % 22.3 % (9.0-44.0); LYMPHOCYTE # 1.4 TH/MM3 (1.0-4.8); MEAN CELL VOLUME 86.4 FL (80.0-100.0); MEAN CORPUSCULAR HGB CONC 34.7 % (32.0-36.0); MONO % 9.8 % (0.0-8.0); NEUT % 63.6 % (16.0-70.0); PLATELET COUNT 175 TH/MM3 (150-450); RED BLOOD COUNT 3.58 MIL/MM3 (4.00-5.30); WHITE BLOOD COUNT 6.2 TH/MM3 (4.0-11.0)
[2017-05-21 16:25] LABS: ALKALINE PHOSPHATASE 86 U/L (45-117); ALT (GPT) 66 U/L (10-53); ANION GAP 4 MEQ/L (5-15); AST (GOT) 42 U/L (15-37); BICARBONATE 28.8 MEQ/L (21.0-32.0); BLOOD UREA NITROGEN 2 MG/DL (7-18); CHLORIDE 107 MEQ/L (98-107); GLOMERULAR FILTRATION RATE 122 ML/MIN (>89); POTASSIUM 4.2 MEQ/L (3.5-5.1); SODIUM (NA) 140 MEQ/L (136-145); TOTAL BILIRUBIN ADULT 0.4 MG/DL (0.2-1.0)
[2017-05-22] MEDS: oxyCODONE/ACETAMINOPHEN 5 MG/325 MG TAB PO PRN ×3 (03:12→11:12)
[2017-05-22] MEDS: metroNIDAZOLE 500 MG INJ 100 ML IV SCH ×3 (03:13→18:33)
[2017-05-22] MEDS: CIPROFLOXACIN 400 MG PREMIX 200 ML IV SCH ×2 (04:33→16:35)
[2017-05-22 04:53] VITALS: BP 122/74; PULSE 76; RESP 18; TEMP 96.3; O2SAT 95
[2017-05-22 07:43] VITALS: BP 124/76; PULSE 76; RESP 19; TEMP 96; O2SAT 97
[2017-05-22] MEDS: SODIUM CHLORIDE 0.9% FLUSH 10 ML FLUSH IV FLUSH SCH (09:00)
--- NOTE | 2017-05-22 09:08 | HHI.PR ---
Subjective Remarks in no acute distress. pain seems to be fairly controlled. had some nausea last night- no emesis. no fever. Objective Vitals Vital Signs Date Time Temp Pulse Resp B/P Pulse Ox O2 Delivery O2 Flow Rate FiO2 05/22/17 07:43 96.0 76 19 124/76 97 05/22/17 04:53 96.3 76 18 122/74 95 05/21/17 23:23 96.6 81 17 109/73 96 05/21/17 21:17 21 05/21/17 19:30 97.3 73 18 108/66 98 05/21/17 16:00 95.9 86 18 122/72 96 05/21/17 11:34 97.0 90 18 99/64 95 05/21/17 11:15 95 I/O 05/21/17 05/21/17 05/21/17 05/22/17 05/22/17 05/22/17 07:00 15:00 23:00 07:00 15:00 23:00 Intake Total 360 ml 800 ml 720 ml 480 ml Output Total 1450 ml Balance 360 ml 800 ml -730 ml 480 ml Intake Oral 360 ml 800 ml 720 ml 480 ml Output Urine Total 1450 ml # Voids 2 3 2 # Bowel Movements 0 0 0 Result Diagram: 05/21/17 1449 05/21/17 1429 Imaging Last Impressions Gall Bladder Ultrasound 05/17/17 0000 Signed Impressions: Service Date/Time: Wednesday, May 17, 2017 02:15 - CONCLUSION: 1. Cholelithiasis with mild gallbladder wall thickening. Cholecystitis is not excluded. Radionuclide imaging is recommended for further evaluation if clinically indicated. Ricky Bland MD Cholangiopancreatography MRI 05/17/17 0000 Signed Impressions: Service Date/Time: Wednesday, May 17, 2017 03:36 - CONCLUSION: 1. Findings of acute pancreatitis. 2. Cholelithiasis without common duct stone Ricky Bland MD Objective Remarks GENERAL: This is a well-nourished, well-developed patient, in no apparent distress. CARDIOVASCULAR: Regular rate and regular rhythm without murmurs, gallops, or rubs. RESPIRATORY: Clear to auscultation. Breath sounds equal bilaterally. No wheezes , rales, or rhonchi. GASTROINTESTINAL: Abdomen soft, mild periumbilical tenderness which seems to be improving, nondistended. Normal, active bowel sounds MUSCULOSKELETAL: Extremities without clubbing, cyanosis, or edema. NEURO: Alert & Oriented x4 to person, place, time, situation. Moves all ext x4 Procedures laparoscopic cholecystectomy. Medications and IVs Current Medications Pantoprazole Sodium (Protonix Inj) 40 mg ONCE ONCE IVP Last administered on 01:36; Start 05/17/17 at 01:30; Stop 05/17/17 at 01:31; Status DC Sodium Chloride (NS Flush) 2 ml UNSCH PRN IV FLUSH FLUSH AFTER USING IV ACCESS ; Start 05/17/17 at 01:30; Stop 05/19/17 at 22:21; Status DC Ciprofloxacin (Cipro) 750 mg ONCE ONCE PO Last administered on 05/17/17 02:46 ; Start 05/17/17 at 02:30; Stop 05/17/17 at 02:31; Status DC Potassium Chloride (KCl) 60 meq ONCE ONCE PO Last administered on 05/17/17 02: 47; Start 05/17/17 at 02:45; Stop 05/17/17 at 02:46; Status DC Morphine Sulfate 4 mg 4 mg ONCE ONCE IV PUSH Last administered on 05/17/17 03: 14; Start 05/17/17 at 03:15; Stop 05/17/17 at 03:16; Status DC Ciprofloxacin/ Dextrose 200 ml @ 200 mls/hr ONCE ONCE IV ; Start 05/17/17 at 03 :15; Stop 05/17/17 at 04:14; Status DC Metronidazole (Flagyl 500 Mg Inj) 100 ml @ 100 mls/hr ONCE ONCE IV Last administered on 05/17/17 03:19; Start 05/17/17 at 03:15; Stop 05/17/17 at 04:14; Status DC Ondansetron HCl 4 mg 4 mg ONCE ONCE IV PUSH ; Start 05/17/17 at 03:15; Stop 05/17 at 03:16; Status DC Ciprofloxacin/ Dextrose 200 ml @ 200 mls/hr Q12H IV ; Start 05/17/17 at 15:00; Stop 05/17/17 at 15:00; Status DC Metronidazole 100 ml @ 100 mls/hr Q8H IV Last administered on 05/22/17 03:13 ; Start 05/17/17 at 11:00 Sodium Chloride (NS 1000 ml Inj) 1,000 ml @ 100 mls/hr Q10H IV Last administered on 05/19/17 03:42; Start 05/17/17 at 03:19; Stop 05/19/17 at 09:43; Status DC Sodium Chloride (NS Flush) 2 ml UNSCH PRN IV FLUSH FLUSH AFTER USING IV ACCESS ; Start 05/17/17 at 03:30 Sodium Chloride (NS Flush) 2 ml BID IV FLUSH Last administered on 05/20/17 09: 00; Start 05/17/17 at 09:00 Ondansetron HCl (Zofran Inj) 4 mg Q6H PRN IVP NAUSEA OR VOMITING Last administered on 05/19/17 00:31; Start 05/17/17 at 03:30 Acetaminophen (Tylenol) 650 mg Q6H PRN PO FEVER/PAIN 1-2/HEADACHE Last administered on 05/18/17 15:48; Start 05/17/17 at 03:30 Morphine Sulfate (Morphine Inj) 1 mg Q3H PRN IV Pain 3-5; Start 05/17/17 at 03: 30 Morphine Sulfate (Morphine Inj) 2 mg Q3H PRN IV Pain 6-10 Last administered on 05/21/17 05:48; Start 05/17/17 at 03:30 Senna/Docusate Sodium (Lynne-Colace) 1 tab BID PO Last administered on 05/19/17 22:15; Start 05/17/17 at 09:00 Magnesium Hydroxide (Milk Of Magnesia Liq) 30 ml Q12H PRN PO MILD - MODERATE CONSTIPATION; Start 05/17/17 at 03:30 Sennosides (Senokot) 17.2 mg Q12H PRN PO MODERATE - SEVERE CONSTIPATION Last administered on 05/17/17 07:57; Start 05/17/17 at 03:30 Bisacodyl (Dulcolax Supp) 10 mg DAILY PRN RECTAL SEVERE CONSITIPATION; Start at 03:30 Lactulose 30 ml 30 ml DAILY PRN PO SEVERE CONSITIPATION Last administered on 07:58; Start 05/17/17 at 03:30 Ciprofloxacin/ Dextrose 200 ml @ 200 mls/hr Q12H IV Last administered on 04:33; Start 05/17/17 at 16:00 Potassium Chloride/Sodium Chloride 1,000 ml @ 100 mls/hr Q10H IV Last administered on 05/21/17 09:54; Start 05/20/17 at 03:19; Stop 05/21/17 at 10:15; Status DC Lactated Ringer's 1,000 ml @ 30 mls/hr Q24H PRN IV SEE LABEL COMMENTS Last administered on 05/20/17 12:35; Start 05/19/17 at 22:30; Stop 05/22/17 at 22:29 Sodium Chloride (NS 500 ml Inj) 500 ml @ 30 mls/hr [id number] PRN IV SEE LABEL COMMENTS; Start 05/19/17 at 22:30; Stop 05/22/17 at 22:29 Povidone Iodine (Betadine 5% Antisepsis Kit) 1 applic OFFICE ASST PRN EACH NARE SEE LABEL COMMENTS; Start 05/19/17 at 22:30; Stop 05/22/17 at 22:29 Chlorhexidine Gluconate (Chlorhexidine 2% Cloth) 3 pack OFFICE ASST PRN TOPICAL SEE LABEL COMMENTS; Start 05/19/17 at 22:30; Stop 05/22/17 at 22:29 Oxycodone/ Acetaminophen (Percocet 5-325 Mg) 2 tab Q4H PRN PO pain scale 1-5 Last administered on 05/22/17 06:47; Start 05/20/17 at 12:00 Morphine Sulfate (*morphine INJ PERIprocedure ONLY) 8 mg STK-MED ONCE .ROUTE Last administered on 05/20/17 12:23; Start 05/20/17 at 12:23; Stop 05/20/17 at 12: 24; Status DC Midazolam HCl (Versed Inj) 2 mg STK-MED ONCE .ROUTE ; Start 05/20/17 at 12:29; Stop 05/20/17 at 12:30; Status DC Fentanyl Citrate (fentaNYL INJ) 250 mcg STK-MED ONCE .ROUTE ; Start 05/20/17 at 12:30; Stop 05/20/17 at 12:31; Status DC Morphine Sulfate (*morphine INJ PERIprocedure ONLY) 8 mg STK-MED ONCE .ROUTE Last administered on 05/20/17 12:39; Start 05/20/17 at 12:39; Stop 05/20/17 at 12: 40; Status DC Morphine Sulfate (*morphine INJ PERIprocedure ONLY) 8 mg STK-MED ONCE .ROUTE Last administered on 05/20/17 12:49; Start 05/20/17 at 12:49; Stop 05/20/17 at 12: 50; Status DC Miscellaneous Information ALL NURSING DEPARTME... UNSCH PRN .XX SEE LABEL COMMENTS; Start 05/20/17 at 15:15; Stop 05/21/17 at 15:14; Status DC A/P Assessment and Plan A/P 1. Pancreatitis: Gallstone Pancreatitis- MRCP with cholelithiasis without common duct stone. s/p laparoscopic cholecystectomy- general surgery following. GI has signed off. 2. Cholecystitis: s/p cholecystectomy- as noted above. 3. Elevated LFTs: secondary to above-improving.. 4. UTI: UC with e-coli- continue Abx. 5. Hypokalemia: replaced. 6. DVT Prophylaxis: SCD/Teds. Discharge Planning dc home when cleared by general surgery. f/u with pcp and general surgery upon discharge. see med list. d/w the patient. Ana Gruber MD May 22, 2017 09:08
--- NOTE | 2017-05-22 09:10 | HHI.DCPOC ---
Discharge Care Plan Diagnosis: (1) Gallstone pancreatitis Your Health Problems Are: Inflammation Goals to Promote Your Health * To prevent worsening of your condition and complications * To maintain your health at the optimal level Directions to Meet Your Goals Take your medications as prescribed Follow your dietary instruction Follow activity as directed Keep your appointments as scheduled Take your immunizations and boosters as scheduled If your symptoms worsen call your PCP, if no PCP go to Urgent Care Center or Emergency Room Smoking is Dangerous to Your Health. Avoid second hand smoke Call the 24-hour hour crisis hotline for domestic abuse at Ana Gruber MD May 22, 2017 09:10
--- NOTE | 2017-05-22 09:11 | HHI.DS ---
Discharge Summary Admission Date May 17, 2017 at 03:16 Discharge Date: May 22, 2017 Admitting Diagnosis gallstone pancreatitis, UTI, cholecystitis (1) Gallstone pancreatitis ICD Code: K85.10 Diagnosis: Principal (2) Cholecystitis ICD Code: K81.9 Diagnosis: Principal (3) Elevated LFTs ICD Code: R79.89 Diagnosis: Principal (4) UTI (urinary tract infection) ICD Code: N39.0 Diagnosis: Secondary (5) Hypokalemia ICD Code: E87.6 Diagnosis: Secondary Procedures laparoscopic cholecystectomy. Brief History - From Admission This is a 46-year-old female with no significant PMH who presents the ER with complain severe abdominal pain x2 wks. Reports pain has been intermittent, worse with food, and occasional radiation to back. Denies fever, chills, nausea or vomiting. No h/o similar symptoms in the past. On arrival, BP 187/ 112, HR 100, O2 sat 96% on RA, Afebrile. CBC unremarkable. K+ 3.0. LFTs elevated. Total Bili 8. Lipase 24,284. UA positive for UTI. Gallbladder US with cholelithiasis and mild gallbladder wall thickening, cholecystitis not excluded. MRCP ordered in the ER, currently pending. GI and General SURGERY consulted by ER physician, will evaluate in a.m. S/p Cipro/Flagyl. CBC/BMP: 05/21/17 1449 05/21/17 1429 Significant Findings Laboratory Tests Test 05/20/17 05/21/17 05/21/17 07:47 14:29 14:49 Direct Bilirubin 0.3 MG/DL (0.0-0.2) Alanine Aminotransferase 87 U/L (10-53) 66 U/L (10-53) (ALT/SGPT) Total Protein 6.2 GM/DL 5.7 GM/DL (6.4-8.2) (6.4-8.2) Albumin 2.5 GM/DL 2.2 GM/DL (3.4-5.0) (3.4-5.0) Anion Gap 4 MEQ/L (5-15) Blood Urea Nitrogen 2 MG/DL (7-18) Calcium Level 8.4 MG/DL (8.5-10.1) Aspartate Amino Transf 42 U/L (15-37) (AST/SGOT) Red Blood Count 3.58 MIL/MM3 (4.00-5.30) Hemoglobin 10.8 GM/DL (11.6-15.3) Hematocrit 31.0 % (35.0-46.0) Monocytes (%) (Auto) 9.8 % (0.0-8.0) Imaging Last Impressions Gall Bladder Ultrasound 05/17/17 0000 Signed Impressions: Service Date/Time: Wednesday, May 17, 2017 02:15 - CONCLUSION: 1. Cholelithiasis with mild gallbladder wall thickening. Cholecystitis is not excluded. Radionuclide imaging is recommended for further evaluation if clinically indicated. Ricky Bland MD Cholangiopancreatography MRI 05/17/17 Signed Impressions: Service Date/Time: Wednesday, May 17, 2017 03:36 - CONCLUSION: 1. Findings of acute pancreatitis. 2. Cholelithiasis without common duct stone Ricky Bland MD PE at Discharge GENERAL: This is a well-nourished, well-developed patient, in no apparent distress. CARDIOVASCULAR: Regular rate and regular rhythm without murmurs, gallops, or rubs. RESPIRATORY: Clear to auscultation. Breath sounds equal bilaterally. No wheezes , rales, or rhonchi. GASTROINTESTINAL: Abdomen soft, mild periumbilical tenderness which seems to be improving, nondistended. Normal, active bowel sounds MUSCULOSKELETAL: Extremities without clubbing, cyanosis, or edema. NEURO: Alert & Oriented x4 to person, place, time, situation. Moves all ext x4 Hospital Course 1. Pancreatitis: Gallstone Pancreatitis- MRCP with cholelithiasis without common duct stone. s/p laparoscopic cholecystectomy- general surgery following. GI has signed off. 2. Cholecystitis: s/p cholecystectomy- as noted above. 3. Elevated LFTs: secondary to above-improving.. 4. UTI: UC with e-coli- continue Abx. 5. Hypokalemia: replaced. 6. DVT Prophylaxis: SCD/Teds. Pt Condition on Discharge: Fair Discharge Disposition: Discharge Home Discharge Time: <= 30 minutes Discharge Instructions DIET: Follow Instructions for: Heart Healthy Diet, Low Fat Diet Activities you can perform: Regular-No Restrictions Follow up Referrals: PCP Follow-up Surgical New Medications: Hydrocodone-Acetaminophen (Luxora) 5-325 mg Tab 1 TAB PO Q6H PRN PAIN #12 Ref 0 TAB Discontinued Medications: Ciprofloxacin (Ciprofloxacin) 750 Mg Tab 750 MG PO BID Infection Days 7 Ref 0 TAB Aan Gruber MD May 22, 2017 09:11
[2017-05-22] MEDS: DOCUSATE SODIUM 50 MG/SENNA 8.6 MG TAB PO SCH (11:12)
[2017-05-22 11:25] VITALS: O2SAT 93
[2017-05-22 11:37] VITALS: BP 134/88; PULSE 81; RESP 19; TEMP 96.6; O2SAT 97
--- NOTE | 2017-05-22 14:04 | MP ---
cc: MORGAN WU MD DATE OF SURGERY 05/20/2017 DIAGNOSIS Gallstone pancreatitis POSTOPERATIVE DIAGNOSIS Gallstone pancreatitis PROCEDURE PERFORMED Laparoscopic cholecystectomy SURGEON Dr. 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 INDICATION The patient is a 36-year-old female who presents with acute onset of epigastric pain, right-sided pain. She had admission to the hospital after findings of a lipase of 24,000, and consistency with pancreatitis. Pancreatitis was improving and resolving, therefore the patient was to undergo a laparoscopic cholecystectomy. The procedure discussed with the patient in detail. DETAILS OF THE PROCEDURE The patient was taken to the operating suite, placed in the supine position. She was prepped and draped in the usual sterile fashion after induction of general endotracheal anesthesia. A brief time-out done stating correct patient, procedure, surgical site and we were all in agreement with this. Attention was directed to the umbilicus where a stab isis incision was made after local anesthetic injected. Veress needle was used to insufflate the abdomen after saline drop test confirmation. The abdomen was then insufflated to 15 mm pneumoperitoneum. A 5-mm scope and trocar Visiport used to enter the abdomen. On gross inspection, no evidence of injury. Three other ports placed, one 12 mm epigastric followed by two 5 mm right subcostal. The patient then placed in reverse Trendelenburg and airplaned to the left. The gallbladder was identified. Several adhesions noted to the gallbladder were taken down. The gallbladder was grasped and retracted cephalad. The cystic duct and cystic artery were identified as the only structures covering the gallbladder. These were dissected out with [place] electro Bovie cautery. Three clips were placed proximal on the cystic duct and one distal and two clips placed proximal on the cystic artery and one distal. This was used to clip the cystic duct and cystic artery. Next, electro Bovie cautery was used to remove the gallbladder from the gallbladder fossa. Hemostasis was obtained in gallbladder fossa. The gallbladder was placed in EndoCatch bag. This was removed from the abdomen through the epigastric port. On inspection, no evidence of bile leaking or blood. Next, the abdomen was desufflated, ports were removed. The fascia was closed with a 0 Vicryl stitch. Followed by 4-0 Monocryl subcuticular sutures. Sterile dressings were placed. All lap and instrument counts were correct. The patient tolerated the procedure well. There were no intraoperative complications. The patient was extubated and taken stable to PACU. MD AMANDA Brown/ANDREW /7:40 PM /11:08 AM
[2017-05-22 16:00] VITALS: BP 136/84; PULSE 91; RESP 18; TEMP 97.6; O2SAT 97
--- NOTE | 2017-05-22 18:26 | HHI.PR ---
Subjective Subjective Notes Resting in bed Eating dinner Has ambulating in the hallways Objective Vitals/I&O Vital Signs Date Time Temp Pulse Resp B/P Pulse Ox O2 Delivery O2 Flow Rate FiO2 05/22/17 16:00 97.6 91 18 136/84 97 05/22/17 11:25 21 05/20/17 20:42 Nasal Cannula 2.00 Radiology Last Impressions Gall Bladder Ultrasound 05/17/17 0000 Signed Impressions: Service Date/Time: Wednesday, May 17, 2017 02:15 - CONCLUSION: 1. Cholelithiasis with mild gallbladder wall thickening. Cholecystitis is not excluded. Radionuclide imaging is recommended for further evaluation if clinically indicated. Ricky Bland MD Cholangiopancreatography MRI 05/17/17 0000 Signed Impressions: Service Date/Time: Wednesday, May 17, 2017 03:36 - CONCLUSION: 1. Findings of acute pancreatitis. 2. Cholelithiasis without common duct stone Ricky Bland MD Cardiovascular: Regular Lungs: Clear Abdomen: Non-distended, Other (lap sites c/d/i; soft; minimal tenderness with palpation ) Extremities: No edema A/P Problem List: (1) Cholecystitis (2) UTI (urinary tract infection) (3) Elevated LFTs (4) Gallstone pancreatitis (5) Elevated amylase Assessment and Plan 46 year old female with GS pancreatitis -POD2 lap zafar; no complications -Tolerating heart healthy diet -OOB as tolerated -Pain control -GS clear for DC; follow up next Friday Problem Qualifiers (1) UTI (urinary tract infection): Qualified Code: N30.00 - Acute cystitis without hematuria Bridget Loja May 22, 2017 18:25
== END 2017-05-22 19:36 | disposition home or self-care (01) | DRG 418 ==
LOC: NEPE 01:03 → NEDA 03:16 → N06B 04:20
PROVIDERS: ADMIT Internal Medicine; ATTEND Internal Medicine
PROC: 0FT44ZZ Resection of Gallbladder, Percutaneous Endoscopic Approach (ICD-10-PCS; principal; 2017-05-20 10:53)
DX: K85.10 Biliary acute pancreatitis without necrosis or infection (principal); N30.00 Acute cystitis without hematuria; K80.10 Calculus of gallbladder with chronic cholecystitis without obstruction; E87.6 Hypokalemia; R51 Headache
CPT/HCPCS: 74181; 76377; 76705; 76937; 80053; 80076; 81001; 83690; 84703; 85025; 87077; 87086; 87186; 88304; 96374; 96375; C9113; J0744; J2250; J2270; J2405; J2710; J3010; J3480; J7030; J7120